=== PATIENT | male | born 1975 | race African-American/Black ===

== ENCOUNTER 2017-03-13 18:10 | Inpatient (IN) | payer MEDICAID ==
[~2017-03-13] VITALS: Ht 177.8 cm; Wt 140.6 kg
[2017-03-13 19:01] LABS: Basophils # (auto) 0.1 uL; Basophils % (auto) 0.4 % (0.0-2.0); CONDITION Y; Eosinophils # (auto) 0.1 uL; Eosinophils % (auto) 0.3 % (0.0-7.0); Hematocrit 31.7 % (41.0-53.0); Hemoglobin 10.6 g/dL (13.5-17.5); Lymphocytes # (auto) 0.9 uL; Lymphocytes % (auto) 5.6 % (10.0-50.0); Mean Corpuscular Hemoglobin 30.8 pg (28.0-32.0); Mean Corpuscular Hgb Conc. 33.4 g/dL (32.0-36.0); Mean Corpuscular Volume 92.2 fL (80.0-100.0); Mean Platelet Volume 7.4 fL (7.4-10.4); Monocytes # (auto) 0.4 uL; Monocytes % (auto) 2.8 % (0.0-12.0); Neutrophils # (auto) 14.2 uL; Neutrophils % (auto) 90.9 % (37.0-80.0); Platelet Count (auto) 444 10^3/uL (140-450); Red Cell Distribution Width 13.3 % (11.6-16.0); White Blood Cell 15.6 10^3/uL (4.4-10.8)
[2017-03-13 19:26] LABS: Albumin 2.8 g/dL (3.4-5.0); Bilirubin, Total 0.3 mg/dL (0.2-1.0); Calcium 9.1 mg/dL (8.5-10.1); Potassium 4.7 mmol/L (3.5-5.1); Total Protein 9.1 g/dL (6.4-8.2)
[2017-03-14] MEDS ORDERED: ONDANSETRON HCL 4 MG/2 ML VIAL ONE (01:11)
[2017-03-14] MEDS ORDERED: SODIUM CHLORIDE 0.9% 1,000 ML IV ONE (01:15)
[2017-03-14] MEDS ORDERED: HYDROmorphone HCL 2 MG/ML VL IV ONE ×2 (01:15→05:30)
[2017-03-14] MEDS ORDERED: ONDANSETRON HCL 4 MG/2 ML VIAL IV ONE ×2 (01:15→04:30)
[2017-03-14 02:38] LABS: Urine Bilirubin Negative (Negative); Urine Blood 2+ /uL (Negative); Urine Color Yellow (Yellow); Urine Glucose Normal (Normal); Urine Ketone 1+ (Negative); Urine Nitrite POSITIVE (Negative); Urine RBC 129 /hpf (0 - 3); Urine Squamous Epithelial Cell FEW /hpf (<5); Urine Urobilinogen Normal (Negative); Urine WBC Clumps PRESENT /hpf (None Seen)
[2017-03-14] MEDS ORDERED: cefTRIAXone 1GM/50ML D5W 50 ML IV ONE (03:45)
[2017-03-14] MEDS ORDERED: PROMETHAZINE HCL 25 MG/ML 1ML IV ONE (05:00)
[2017-03-14] MEDS: SODIUM CHLORIDE 0.9% 1,000 ML IV SCH ×2 (06:07→14:07)
[2017-03-14] MEDS ORDERED: ONDANSETRON HCL 4 MG/2 ML VIAL IV PRN (06:15)
[2017-03-14] MEDS ORDERED: DEXTROSE (50%) 50ML SYRG IV PRN (06:15)
[2017-03-14] MEDS: FERROUS SULFATE 325 MG TAB PO SCH ×3 (07:54→17:39)
[2017-03-14] MEDS: cefTRIAXone 1GM/50ML D5W 50 ML IV SCH (07:55)
[2017-03-14 09:00] VITALS: BP 156/94
[2017-03-14] MEDS: ONDANSETRON HCL 4 MG/2 ML VIAL IV PRN ×4 (09:07→21:06)
[2017-03-14] MEDS: HYDROmorphone HCL 2 MG/ML VL IV PRN ×4 (09:08→21:06)
[2017-03-14] MEDS: PANTOPRAZOLE 40 MG/10 ML VIAL IV SCH (10:52)
[2017-03-14] MEDS: hydrALAZINE HCL 25 MG TAB PO SCH ×2 (10:53→22:22)
[2017-03-14] MEDS: GABAPENTIN 300 MG CAP PO SCH (10:54)
[2017-03-14] MEDS: FAMOTIDINE 20 MG TAB PO SCH ×2 (10:54→22:24)
[2017-03-14] MEDS: LISINOPRIL 10 MG TAB PO SCH (10:55)
[2017-03-14] MEDS: amLODIPine BESYLATE 5 MG TAB PO SCH ×2 (10:56→22:24)
[2017-03-14] MEDS: METOPROLOL TARTRATE 50 MG TAB PO SCH ×2 (10:57→22:23)
[2017-03-14] MEDS: InsuLIN REG 1unit/0.01ml Soln (100units/ml) SC SCH ×3 (12:00→22:30)
[2017-03-14] MEDS: ACCU-CHEK COMFORT CURVE STRIP VI SCH ×3 (12:00→22:29)
[2017-03-14 12:47] VITALS: BP 158/101
[2017-03-14 12:49] LABS: Basophils # (auto) 0 uL; CONDITION Y; Eosinophils # (auto) 0 uL; Hematocrit 28.5 % (41.0-53.0); Hemoglobin 9.5 g/dL (13.5-17.5); Lymphocytes # (auto) 0.9 uL; Lymphocytes % (auto) 6.2 % (10.0-50.0); Mean Corpuscular Hemoglobin 30.8 pg (28.0-32.0); Mean Corpuscular Hgb Conc. 33.3 g/dL (32.0-36.0); Mean Corpuscular Volume 92.5 fL (80.0-100.0); Mean Platelet Volume 7.7 fL (7.4-10.4); Monocytes # (auto) 0.7 uL; Monocytes % (auto) 4.9 % (0.0-12.0); Neutrophils # (auto) 13.1 uL; Neutrophils % (auto) 88.9 % (37.0-80.0); Platelet Count (auto) 406 10^3/uL (140-450); Red Cell Distribution Width 13.6 % (11.6-16.0); White Blood Cell 14.8 10^3/uL (4.4-10.8)
[2017-03-14 13:10] LABS: BUN/Creatinine Ratio 20.8; Calcium 8.8 mg/dL (8.5-10.1); Magnesium 2.3 mg/dL (1.6-2.6); Potassium 4.5 mmol/L (3.5-5.1)
[2017-03-14] MEDS ORDERED: AMLO5TAB2 PO (13:44)
[2017-03-14] MEDS ORDERED: METO-159 PO (13:44)
[2017-03-14] MEDS ORDERED: FERR325T PO (13:44)
[2017-03-14] MEDS ORDERED: AMIT25TA9 PO (13:44)
[2017-03-14] MEDS ORDERED: HYDR-2652 PO (13:44)
[2017-03-14] MEDS ORDERED: LISI10TA6 PO (13:44)
[2017-03-14] MEDS ORDERED: GABA-497 PO (13:44)
[2017-03-14] MEDS ORDERED: INSLANTI SC (14:32)
[2017-03-14 17:00] VITALS: BP 157/114
[2017-03-14 21:00] VITALS: BP 155/96
[2017-03-14] MEDS: AMITRIPTYLINE HCL 25 MG TAB PO SCH (22:23)
[2017-03-15] MEDS: HYDROmorphone HCL 2 MG/ML VL IV PRN ×6 (01:57→22:40)
[2017-03-15] MEDS: SODIUM CHLORIDE 0.9% 1,000 ML IV SCH ×4 (01:58→22:07)
[2017-03-15] MEDS: ONDANSETRON HCL 4 MG/2 ML VIAL IV PRN ×6 (01:58→22:41)
[2017-03-15 04:30] VITALS: BP 136/75
[2017-03-15] MEDS: ACCU-CHEK COMFORT CURVE STRIP VI SCH ×4 (05:46→23:55)
[2017-03-15] MEDS: InsuLIN REG 1unit/0.01ml Soln (100units/ml) SC SCH ×4 (05:47→23:55)
[2017-03-15 06:04] LABS: Basophils # (auto) 0 uL; Basophils % (auto) 0.3 % (0.0-2.0); CONDITION Y; Eosinophils # (auto) 0 uL; Eosinophils % (auto) 0.3 % (0.0-7.0); Hematocrit 30.3 % (41.0-53.0); Hemoglobin 9.8 g/dL (13.5-17.5); Lymphocytes # (auto) 1.1 uL; Lymphocytes % (auto) 8.1 % (10.0-50.0); Mean Corpuscular Hemoglobin 30.4 pg (28.0-32.0); Mean Corpuscular Hgb Conc. 32.4 g/dL (32.0-36.0); Mean Corpuscular Volume 93.7 fL (80.0-100.0); Mean Platelet Volume 7.9 fL (7.4-10.4); Monocytes # (auto) 0.5 uL; Monocytes % (auto) 3.8 % (0.0-12.0); Neutrophils # (auto) 11.5 uL; Neutrophils % (auto) 87.5 % (37.0-80.0); Platelet Count (auto) 434 10^3/uL (140-450); Red Cell Distribution Width 13.5 % (11.6-16.0); White Blood Cell 13.1 10^3/uL (4.4-10.8)
[2017-03-15 06:25] LABS: BUN/Creatinine Ratio 18.4; Calcium 8.7 mg/dL (8.5-10.1); Magnesium 2.2 mg/dL (1.6-2.6); Potassium 4.8 mmol/L (3.5-5.1)
[2017-03-15 08:00] VITALS: BP 140/81
[2017-03-15] MEDS: FERROUS SULFATE 325 MG TAB PO SCH ×4 (08:00→18:00)
[2017-03-15] MEDS: cefTRIAXone 1GM/50ML D5W 50 ML IV SCH (08:15)
[2017-03-15 08:47] VITALS: BP 150/76
[2017-03-15] MEDS: GABAPENTIN 300 MG CAP PO SCH (11:11)
[2017-03-15] MEDS: FAMOTIDINE 20 MG TAB PO SCH ×2 (11:11→21:30)
[2017-03-15] MEDS: PANTOPRAZOLE 40 MG/10 ML VIAL IV SCH (11:11)
[2017-03-15] MEDS: METOPROLOL TARTRATE 50 MG TAB PO SCH ×2 (11:12→21:28)
[2017-03-15] MEDS: hydrALAZINE HCL 25 MG TAB PO SCH ×3 (11:12→21:29)
[2017-03-15] MEDS: amLODIPine BESYLATE 5 MG TAB PO SCH ×2 (11:13→21:27)
[2017-03-15] MEDS: LISINOPRIL 10 MG TAB PO SCH (11:13)
[2017-03-15 12:49] VITALS: BP 148/88
[2017-03-15] MEDS ORDERED: POLYETHYLENE GLYCOL 17 GM PWDR PO PRN (13:30)
[2017-03-15 14:18] LABS: INR 0.99 (0.9-1.15); Partial Thromboplastin Time 28.5 sec (22.64-33.71); Prothrombin Time 10.8 sec (9.37-12.3)
[2017-03-15 16:52] VITALS: BP 158/97
[2017-03-15 18:44] LABS: BUN/Creatinine Ratio 18.5; Calcium 8.7 mg/dL (8.5-10.1); Potassium 4.5 mmol/L (3.5-5.1)
[2017-03-15] MEDS: AMITRIPTYLINE HCL 25 MG TAB PO SCH (21:29)
[2017-03-15 21:30] VITALS: BP 149/85
[2017-03-16] MEDS: ONDANSETRON HCL 4 MG/2 ML VIAL IV PRN ×4 (02:50→17:58)
[2017-03-16] MEDS: HYDROmorphone HCL 2 MG/ML VL IV PRN ×3 (02:50→12:13)
[2017-03-16 05:00] VITALS: BP 145/98
[2017-03-16] MEDS: hydrALAZINE HCL 25 MG TAB PO SCH (06:17)
[2017-03-16] MEDS: ACCU-CHEK COMFORT CURVE STRIP VI SCH ×2 (06:18→12:13)
[2017-03-16] MEDS: InsuLIN REG 1unit/0.01ml Soln (100units/ml) SC SCH (06:18)
[2017-03-16] MEDS: SODIUM CHLORIDE 0.9% 1,000 ML IV SCH ×2 (06:19→12:21)
[2017-03-16 06:50] LABS: Basophils # (auto) 0 uL; Basophils % (auto) 0.4 % (0.0-2.0); CONDITION Y; Eosinophils # (auto) 0.1 uL; Eosinophils % (auto) 0.7 % (0.0-7.0); Hematocrit 29.4 % (41.0-53.0); Hemoglobin 9.7 g/dL (13.5-17.5); Lymphocytes # (auto) 1.2 uL; Lymphocytes % (auto) 12.3 % (10.0-50.0); Mean Corpuscular Hemoglobin 30.5 pg (28.0-32.0); Mean Corpuscular Hgb Conc. 32.9 g/dL (32.0-36.0); Mean Corpuscular Volume 92.9 fL (80.0-100.0); Mean Platelet Volume 7.9 fL (7.4-10.4); Monocytes # (auto) 0.6 uL; Monocytes % (auto) 6.5 % (0.0-12.0); Neutrophils # (auto) 7.8 uL; Neutrophils % (auto) 80.1 % (37.0-80.0); Platelet Count (auto) 435 10^3/uL (140-450); Red Cell Distribution Width 13.4 % (11.6-16.0); White Blood Cell 9.8 10^3/uL (4.4-10.8)
[2017-03-16 07:03] LABS: BUN/Creatinine Ratio 16.5; Calcium 8.6 mg/dL (8.5-10.1); Potassium 4.4 mmol/L (3.5-5.1)
[2017-03-16 08:00] VITALS: BP 145/98
[2017-03-16] MEDS: FERROUS SULFATE 325 MG TAB PO SCH (08:00)
[2017-03-16 09:00] VITALS: BP 160/102
[2017-03-16] MEDS: GABAPENTIN 300 MG CAP PO SCH (10:00)
[2017-03-16] MEDS: PANTOPRAZOLE 40 MG/10 ML VIAL IV SCH (10:06)
[2017-03-16] MEDS: cefTRIAXone 1GM/50ML D5W 50 ML IV SCH (10:06)
[2017-03-16] MEDS: FAMOTIDINE 20 MG TAB PO SCH (10:07)
[2017-03-16] MEDS: amLODIPine BESYLATE 5 MG TAB PO SCH (10:07)
[2017-03-16] MEDS: METOPROLOL TARTRATE 50 MG TAB PO SCH (10:07)
[2017-03-16 13:00] VITALS: BP 161/107
[2017-03-16] MEDS ORDERED: NALOXONE HCL 0.4 MG/ML VIAL ONE (13:38)
[2017-03-16] MEDS ORDERED: FLUMAZENIL 0.1 MG/ML INJ 10ML MDV IV ONE (13:38)
[2017-03-16] MEDS ORDERED: LIDOCAINE VISCOUS 2% 15ML UD ONE (13:39)
[2017-03-16] MEDS ORDERED: diphenhdrAMINE HCL 50 MG/1 ML VL ONE (13:39)
[2017-03-16] MEDS ORDERED: SODIUM CHLORIDE LOCK 10 ML ONE (13:39)
[2017-03-16] MEDS: MIDAZOLAM HCL 5 MG/ML-1ML VIAL ONE ×2 (13:56→13:59)
[2017-03-16] MEDS: fentaNYL CITRATE 100 MCG/2 ML VL ONE ×2 (13:56→13:59)
[2017-03-16] MEDS ORDERED: HYDR-4663 PO ×2 (14:21→14:26)
[2017-03-16] MEDS ORDERED: HYDR-531 PO (14:24)
[2017-03-16] MEDS ORDERED: ONDA4TAB8 PO (14:25)
[2017-03-16] MEDS ORDERED: HYDR-2651 PO (14:25)
[2017-03-16] MEDS ORDERED: PANT40T PO (14:25)
[2017-03-16] MEDS ORDERED: LEVO500T21 PO (14:25)
[2017-03-16] MEDS ORDERED: MET50T PO (14:25)
[2017-03-16] MEDS ORDERED: HYDROcodone-ACET 5/325MG TAB PO PRN (14:30)
[2017-03-16] MEDS ORDERED: HYDROmorphone HCL 2 MG/ML VL IV PRN (14:30)
[2017-03-16 17:00] VITALS: BP 148/102
[2017-03-16 18:19] VITALS: BP 148/102
[2017-03-16] MEDS ORDERED: METOPROLOL TARTRATE 50 MG TAB PO SCH (22:00)
== END 2017-03-16 18:55 | disposition home health service (06) | DRG 720 ==
LOC: ER 18:12 → OVERFLOW 18:13 → WEST WING 03-14 08:52
PROVIDERS: ADMIT Family Medicine; ATTEND Internal Medicine
PROC: 0DB68ZX Excision of Stomach, Via Natural or Artificial Opening Endoscopic, Diagnostic (ICD-10-PCS; 2017-03-16)
PROC: 0DB38ZX Excision of Lower Esophagus, Via Natural or Artificial Opening Endoscopic, Diagnostic (ICD-10-PCS; principal; 2017-03-16 13:50)
DX: A41.9 Sepsis, unspecified organism (principal); N17.9 Acute kidney failure, unspecified; E11.21 Type 2 diabetes mellitus with diabetic nephropathy; I10 Essential (primary) hypertension; D63.8 Anemia in other chronic diseases classified elsewhere; E86.0 Dehydration; E11.22 Type 2 diabetes mellitus with diabetic chronic kidney disease; F32.9 Major depressive disorder, single episode, unspecified; I12.9 Hypertensive chronic kidney disease with stage 1 through stage 4 chronic kidney disease, or unspecified chronic kidney disease; K20.9 Esophagitis, unspecified; N18.2 Chronic kidney disease, stage 2 (mild); N30.90 Cystitis, unspecified without hematuria; Z79.4 Long term (current) use of insulin; Z89.511 Acquired absence of right leg below knee; Z89.512 Acquired absence of left leg below knee
CPT/HCPCS: 36415; 43239; 71010; 74176; 76775; 80048; 80053; 81001; 82150; 82962; 83036; 83690; 83735; 84484; 85025; 85610; 85730; 87040; 87086; 87088; 87186; 93005; 96361; 96365; 96375; 96376; C9113; J0696; J1815; J2250; J2405

== ENCOUNTER 2017-03-31 01:29 | Inpatient (IN) | payer MEDICAID ==
[~2017-03-31] VITALS: Ht 121.9 cm; Wt 149.0 kg
[~2017-03-31 01:29] MED LIST: AMIT25TA9 PO; AMLO5TAB2 PO; FERR325T PO; GABA-497 PO; HYDR-2651 PO; HYDR-4663 PO; INSLANTI SC; LEVO500T21 PO; MET50T PO; ONDA4TAB8 PO; PANT40T PO
[2017-03-31] MEDS ORDERED: SODIUM CHLORIDE 0.9% 1,000 ML IV ONE (02:46)
[2017-03-31 02:53] LABS: Basophils # (auto) 0.2 uL; Basophils % (auto) 2.1 % (0.0-2.0); CONDITION Y; Eosinophils # (auto) 0.2 uL; Eosinophils % (auto) 1.4 % (0.0-7.0); Hematocrit 28.7 % (41.0-53.0); Hemoglobin 9.5 g/dL (13.5-17.5); Lymphocytes # (auto) 1.4 uL; Lymphocytes % (auto) 13.1 % (10.0-50.0); Mean Corpuscular Hemoglobin 30.5 pg (28.0-32.0); Mean Corpuscular Volume 92.4 fL (80.0-100.0); Mean Platelet Volume 8.2 fL (6.9-10.8); Monocytes # (auto) 0.8 uL; Monocytes % (auto) 7.7 % (0.0-12.0); Neutrophils # (auto) 8.1 uL; Neutrophils % (auto) 75.7 % (37.0-80.0); Platelet Count (auto) 348 10^3/uL (140-450); Red Cell Distribution Width 13.7 % (11.8-14.3); White Blood Cell 10.7 10^3/uL (4.4-10.8)
[2017-03-31 03:12] LABS: Albumin 2.7 g/dL (3.4-5.0); Calcium 8.3 mg/dL (8.5-10.1); Magnesium 2.9 mg/dL (1.6-2.6)
[2017-03-31 03:19] LABS: BUN/Creatinine Ratio 7.4; Bilirubin, Total 0.1 mg/dL (0.2-1.0); Total Protein 7.6 g/dL (6.4-8.2)
[2017-03-31 03:24] LABS: Potassium 6.6 mmol/L (3.5-5.1)
[2017-03-31] MEDS ORDERED: CALCIUM CHLOR(10%) 100MG/ML 10ML SYRINGE IV ONE (03:42)
[2017-03-31] MEDS ORDERED: DEXTROSE (50%) 50ML SYRG IV ONE ×2 (03:45→11:15)
[2017-03-31] MEDS ORDERED: CALCIUM CHL 100MG/ML 1,000 MG in D5W 5% 100 ML IV ONE (03:45)
[2017-03-31] MEDS ORDERED: InsuLIN REG 1unit/0.01ml Soln (100units/ml) IV ONE ×2 (03:45→11:15)
[2017-03-31] MEDS ORDERED: SODIUM BICARBONATE 8.4% INJ 50ML SYRINGE IV ONE (03:45)
[2017-03-31] MEDS ORDERED: ONDANSETRON HCL 4 MG/2 ML VIAL IV ONE (08:15)
[2017-03-31] MEDS ORDERED: MORPHINE SULF INJ 2 MG/ML SYRINGE 1ML IV ONE (08:15)
[2017-03-31] MEDS ORDERED: MORPHINE SULF INJ 2 MG/ML SYRINGE 1ML IV PRN (10:00)
[2017-03-31] MEDS ORDERED: ACETAMINOPHEN 325 MG TAB PO PRN (10:00)
[2017-03-31] MEDS ORDERED: TEMAZEPAM 15 MG CAP PO PRN (10:00)
[2017-03-31] MEDS: GABAPENTIN 300 MG CAP PO SCH (10:00)
[2017-03-31] MEDS ORDERED: FAMOTIDINE 20 MG TAB PO SCH (10:00)
[2017-03-31] MEDS ORDERED: DOCUSATE SOD 100 MG CAP PO PRN (10:00)
[2017-03-31] MEDS ORDERED: NITROGLYCERIN 0.4 MG SL TAB SL PRN (10:00)
[2017-03-31] MEDS: MULTIPLE VITAMIN TAB PO SCH (10:00)
[2017-03-31] MEDS ORDERED: DEXTROSE (50%) 50ML SYRG IV PRN (10:00)
[2017-03-31] MEDS ORDERED: HYDROcodone-ACET 5/325MG TAB PO PRN (10:00)
[2017-03-31] MEDS: FERROUS SULFATE 325 MG TAB PO SCH (10:00)
[2017-03-31] MEDS: FAMOTIDINE 20 MG TAB PO SCH (10:15)
[2017-03-31 10:50] LABS: INR 0.92 (0.9-1.15)
[2017-03-31 11:00] LABS: BUN/Creatinine Ratio 7.5; Calcium 8.3 mg/dL (8.5-10.1)
[2017-03-31 11:09] LABS: Potassium 6.5 mmol/L (3.5-5.1)
[2017-03-31] MEDS ORDERED: SODIUM BICARBONATE 8.4 % INJ 50ML VIAL IV ONE (11:15)
[2017-03-31] MEDS ORDERED: CALCIUM GLUC 4.65meq/50ml D5AE 50 ML IV ONE (11:15)
[2017-03-31] MEDS: InsuLIN REG 1unit/0.01ml Soln (100units/ml) SC SCH ×3 (11:30→22:07)
[2017-03-31] MEDS: ACCU-CHEK COMFORT CURVE STRIP VI SCH ×3 (11:36→22:07)
[2017-03-31] MEDS ORDERED: BUMETANIDE (0.25 MG/ML) INJ 10ML IV ONE (11:45)
[2017-03-31] MEDS: Boost Glucose Control 8 Ounces PO SCH ×2 (12:00→17:58)
[2017-03-31 12:39] LABS: Urine Bilirubin Negative (Negative); Urine Blood 1+ /uL (Negative); Urine Color Yellow (Yellow); Urine Glucose Normal (Normal); Urine Ketone TRACE (Negative); Urine Nitrite Negative (Negative); Urine RBC 3 /hpf (0 - 3); Urine Squamous Epithelial Cell FEW /hpf (<5); Urine Urobilinogen Normal (Negative)
[2017-03-31 12:47] LABS: B-Type Natriuretic Peptide 224.81 pg/mL (0-100)
[2017-03-31 13:27] LABS: Allen Test Yes; Base Excess -19.4 mmol/L (-2.0-2.0); Blood 02Sat 95.2 % (96-100); Blood COHb 0.1 % (0.5-1.5); Blood MetHb 0.4 % (0.0-1.5); HCO3 8.9 mmol/L (22-26.0); HHb 4.8 % (0.0-5.0); MODE ROOM AIR; O2Hb 94.7 % (94.0-97.0); PCO2 29.9 mmHg (35.0-45.0); PCO2(T) 29.9 mmHg (35.0-45.0); PO2 93.1 mmHg (80.0-100.0); PO2(T) 93.1 mmHg (80.0-100.0); Room 1010-ERT; Sample Type Arterial; pH 7.092 (7.350-7.450)
[2017-03-31 13:30] VITALS: BP 107/52
[2017-03-31] MEDS: SODIUM POLYSTYRENE SULF 15GM/60ML SUSP PO SCH ×3 (13:31→18:08)
[2017-03-31] MEDS: SODIUM BICARBONATE 50ML VIAL 150 ML in D5W 5% 1,000 ML IV SCH ×2 (13:31→22:15)
[2017-03-31] MEDS: SODIUM CHLOR 0.9% PF (SALINE LOCK) 10ML VIAL IV SCH ×2 (14:00→22:08)
[2017-03-31 16:00] VITALS: BP 109/52
[2017-03-31] MEDS: MORPHINE SULF INJ 2 MG/ML SYRINGE 1ML IV PRN ×2 (16:06→20:24)
[2017-03-31] MEDS ORDERED: ALBUMIN 25% 100 ML IV ONE (18:00)
[2017-03-31 18:19] LABS: BUN/Creatinine Ratio 7.4; Calcium 8.2 mg/dL (8.5-10.1); Potassium 5.4 mmol/L (3.5-5.1)
[2017-03-31 20:00] VITALS: BP 126/79
[2017-03-31] MEDS: AMITRIPTYLINE HCL 25 MG TAB PO SCH (22:07)
[2017-03-31] MEDS: INSULIN DETEMIR(LEVEMIR) 1unit/0.01ml Soln (100units/ml) SC SCH (22:15)
[2017-04-01] VITALS: BP 140/88
[2017-04-01] MEDS: MORPHINE SULF INJ 2 MG/ML SYRINGE 1ML IV PRN ×3 (00:18→22:31)
[2017-04-01] MEDS: SODIUM BICARBONATE 50ML VIAL 150 ML in D5W 5% 1,000 ML IV SCH ×3 (03:50→19:10)
[2017-04-01 04:00] VITALS: BP 136/65
[2017-04-01 05:50] LABS: Basophils # (auto) 0.2 uL; Basophils % (auto) 2.3 % (0.0-2.0); Eosinophils # (auto) 0.2 uL; Eosinophils % (auto) 3.2 % (0.0-7.0); Hematocrit 24.2 % (41.0-53.0); Hemoglobin 8.1 g/dL (13.5-17.5); Lymphocytes # (auto) 1.1 uL; Lymphocytes % (auto) 16.9 % (10.0-50.0); Mean Corpuscular Hemoglobin 31.3 pg (28.0-32.0); Mean Corpuscular Hgb Conc. 33.5 g/dL (32.0-36.0); Mean Corpuscular Volume 93.5 fL (80.0-100.0); Mean Platelet Volume 8.1 fL (6.9-10.8); Monocytes # (auto) 0.7 uL; Neutrophils # (auto) 4.6 uL; Neutrophils % (auto) 67.6 % (37.0-80.0); Platelet Count (auto) 267 10^3/uL (140-450); Red Cell Distribution Width 13.6 % (11.8-14.3); White Blood Cell 6.7 10^3/uL (4.4-10.8)
[2017-04-01 06:46] LABS: Albumin 2.4 g/dL (3.4-5.0); Bilirubin, Total 0.2 mg/dL (0.2-1.0); Calcium 7.8 mg/dL (8.5-10.1); Potassium 4.5 mmol/L (3.5-5.1); Total Protein 6.8 g/dL (6.4-8.2)
[2017-04-01] MEDS: SODIUM CHLOR 0.9% PF (SALINE LOCK) 10ML VIAL IV SCH ×3 (06:52→22:02)
[2017-04-01] MEDS: ACCU-CHEK COMFORT CURVE STRIP VI SCH ×4 (06:52→22:03)
[2017-04-01] MEDS: InsuLIN REG 1unit/0.01ml Soln (100units/ml) SC SCH ×4 (06:52→22:00)
[2017-04-01 08:00] VITALS: BP 102/58
[2017-04-01] MEDS: Boost Glucose Control 8 Ounces PO SCH ×3 (08:10→18:09)
[2017-04-01] MEDS: FERROUS SULFATE 325 MG TAB PO SCH (09:34)
[2017-04-01] MEDS: FAMOTIDINE 20 MG TAB PO SCH (09:34)
[2017-04-01] MEDS: MULTIPLE VITAMIN TAB PO SCH (09:34)
[2017-04-01] MEDS: GABAPENTIN 300 MG CAP PO SCH (09:34)
[2017-04-01] MEDS: DOPamine 1600MCG/ML 250 ML IV SCH (11:42)
[2017-04-01 12:00] VITALS: BP 138/80
[2017-04-01] MEDS: CALCIUM ACETATE 667 MG CAP PO SCH ×2 (12:18→18:09)
[2017-04-01 16:00] VITALS: BP 120/69
[2017-04-01 20:00] VITALS: BP 112/43
[2017-04-01] MEDS: ONDANSETRON HCL 4 MG/2 ML VIAL IV PRN (21:56)
[2017-04-01] MEDS: INSULIN DETEMIR(LEVEMIR) 1unit/0.01ml Soln (100units/ml) SC SCH (22:26)
[2017-04-01] MEDS: AMITRIPTYLINE HCL 25 MG TAB PO SCH (22:32)
[2017-04-02] VITALS: BP 135/78
[2017-04-02] MEDS: SODIUM BICARBONATE 50ML VIAL 150 ML in D5W 5% 1,000 ML IV SCH ×2 (03:14→09:49)
[2017-04-02 04:00] VITALS: BP 124/71
[2017-04-02 05:39] LABS: Albumin 2.3 g/dL (3.4-5.0); BUN/Creatinine Ratio 11.9; Bilirubin, Total 0.3 mg/dL (0.2-1.0); Calcium 7.6 mg/dL (8.5-10.1); Potassium 4.1 mmol/L (3.5-5.1); Total Protein 6.7 g/dL (6.4-8.2)
[2017-04-02] MEDS: SODIUM CHLOR 0.9% PF (SALINE LOCK) 10ML VIAL IV SCH ×3 (06:06→22:08)
[2017-04-02] MEDS: ACCU-CHEK COMFORT CURVE STRIP VI SCH ×4 (06:12→22:08)
[2017-04-02] MEDS: InsuLIN REG 1unit/0.01ml Soln (100units/ml) SC SCH ×4 (06:13→22:09)
[2017-04-02 07:58] LABS: Basophils # (auto) 0.1 uL; Eosinophils # (auto) 0.1 uL; Eosinophils % (auto) 1.8 % (0.0-7.0); Hematocrit 25.6 % (41.0-53.0); Hemoglobin 8.5 g/dL (13.5-17.5); Lymphocytes # (auto) 1.1 uL; Lymphocytes % (auto) 14.3 % (10.0-50.0); Mean Corpuscular Hemoglobin 30.8 pg (28.0-32.0); Mean Corpuscular Hgb Conc. 33.2 g/dL (32.0-36.0); Mean Corpuscular Volume 92.9 fL (80.0-100.0); Mean Platelet Volume 7.9 fL (6.9-10.8); Monocytes # (auto) 0.7 uL; Monocytes % (auto) 9.1 % (0.0-12.0); Neutrophils # (auto) 5.4 uL; Neutrophils % (auto) 73.8 % (37.0-80.0); Platelet Count (auto) 295 10^3/uL (140-450); Red Cell Distribution Width 13.5 % (11.8-14.3); White Blood Cell 7.4 10^3/uL (4.4-10.8)
[2017-04-02] MEDS: CALCIUM ACETATE 667 MG CAP PO SCH ×4 (08:00→22:08)
[2017-04-02] MEDS: Boost Glucose Control 8 Ounces PO SCH ×3 (08:00→18:23)
[2017-04-02] MEDS: ONDANSETRON HCL 4 MG/2 ML VIAL IV PRN ×3 (08:09→22:15)
[2017-04-02] MEDS: MORPHINE SULF INJ 2 MG/ML SYRINGE 1ML IV PRN ×3 (09:29→22:15)
[2017-04-02] MEDS: GABAPENTIN 300 MG CAP PO SCH (09:33)
[2017-04-02] MEDS: FERROUS SULFATE 325 MG TAB PO SCH (09:33)
[2017-04-02] MEDS: MULTIPLE VITAMIN TAB PO SCH (09:33)
[2017-04-02] MEDS: FAMOTIDINE 20 MG TAB PO SCH (09:33)
[2017-04-02] MEDS: DOPamine 1600MCG/ML 250 ML IV SCH (09:45)
[2017-04-02] MEDS ORDERED: FAMOTIDINE (10MG/ML) 2ML VL IV ONE (11:15)
[2017-04-02] MEDS: METOCLOPRAMIDE HCL 5MG/ml INJ 2ml VIAL IV SCH ×2 (11:58→18:23)
[2017-04-02 12:11] VITALS: BP 144/74
[2017-04-02] MEDS: SODIUM BICARBONATE 50ML VIAL 75 ML in D5W 5% 1,000 ML IV SCH ×2 (12:44→22:08)
[2017-04-02] MEDS ORDERED: PANTOPRAZOLE 40 MG/10 ML VIAL IV ONE (13:45)
[2017-04-02 15:50] VITALS: BP 138/65
[2017-04-02 17:39] VITALS: BP 168/102
[2017-04-02] MEDS: NYSTATIN TOPICAL POWDER 15GM TOP SCH (22:00)
[2017-04-02] MEDS: PANTOPRAZOLE 40 MG/10 ML VIAL IV SCH (22:08)
[2017-04-02] MEDS: INSULIN DETEMIR(LEVEMIR) 1unit/0.01ml Soln (100units/ml) SC SCH (22:10)
[2017-04-02] MEDS: AMITRIPTYLINE HCL 25 MG TAB PO SCH (22:10)
[2017-04-02 22:35] VITALS: BP 170/92
[2017-04-03] VITALS (7 sets, daily range): BP systolic 143–173; BP diastolic 73–106
[2017-04-03] MEDS: METOCLOPRAMIDE HCL 5MG/ml INJ 2ml VIAL IV SCH ×2 (00:31→06:17)
[2017-04-03] MEDS: ONDANSETRON HCL 4 MG/2 ML VIAL IV PRN ×2 (02:21→08:26)
[2017-04-03] MEDS: MORPHINE SULF INJ 2 MG/ML SYRINGE 1ML IV PRN ×4 (02:21→18:06)
[2017-04-03] MEDS: hydrALAZINE HCL 20 MG/ML VL IV PRN ×3 (05:12→17:58)
[2017-04-03] MEDS: SODIUM BICARBONATE 50ML VIAL 75 ML in D5W 5% 1,000 ML IV SCH ×3 (05:35→22:43)
[2017-04-03] MEDS: SODIUM CHLOR 0.9% PF (SALINE LOCK) 10ML VIAL IV SCH ×3 (05:35→21:52)
[2017-04-03] MEDS: ACCU-CHEK COMFORT CURVE STRIP VI SCH ×4 (06:17→22:20)
[2017-04-03] MEDS: InsuLIN REG 1unit/0.01ml Soln (100units/ml) SC SCH ×4 (06:17→22:20)
[2017-04-03 07:34] LABS: Albumin 2.2 g/dL (3.4-5.0); BUN/Creatinine Ratio 16.5; Bilirubin, Total 0.4 mg/dL (0.2-1.0); Calcium 7.6 mg/dL (8.5-10.1); Potassium 4.5 mmol/L (3.5-5.1); Total Protein 6.9 g/dL (6.4-8.2)
[2017-04-03] MEDS: CALCIUM ACETATE 667 MG CAP PO SCH ×3 (08:21→17:57)
[2017-04-03] MEDS: Boost Glucose Control 8 Ounces PO SCH ×3 (08:21→18:07)
[2017-04-03] MEDS ORDERED: FAMOTIDINE (10MG/ML) 2ML VL IV SCH (10:00)
[2017-04-03] MEDS: PANTOPRAZOLE 40 MG/10 ML VIAL IV SCH ×2 (10:29→21:47)
[2017-04-03] MEDS: MULTIPLE VITAMIN TAB PO SCH (10:52)
[2017-04-03] MEDS: FERROUS SULFATE 325 MG TAB PO SCH (10:53)
[2017-04-03] MEDS: NYSTATIN TOPICAL POWDER 15GM TOP SCH ×2 (10:54→22:21)
[2017-04-03] MEDS ORDERED: GABAPENTIN 300 MG CAP PO ONE (11:30)
[2017-04-03] MEDS: METOCLOPRAMIDE HCL 10 MG/10ml ORAL soln PO SCH ×3 (12:05→21:49)
[2017-04-03] MEDS: amLODIPine BESYLATE 5 MG TAB PO SCH (12:40)
[2017-04-03] MEDS ORDERED: GABAPENTIN 300 MG CAP PO SCH (14:00)
[2017-04-03] MEDS: AMITRIPTYLINE HCL 25 MG TAB PO SCH (21:50)
[2017-04-03] MEDS: GABAPENTIN 300 MG CAP PO SCH (21:51)
[2017-04-03] MEDS ORDERED: INSULIN DETEMIR(LEVEMIR) 1unit/0.01ml Soln (100units/ml) SC SCH (22:00)
[2017-04-04] VITALS (7 sets, daily range): BP systolic 132–164; BP diastolic 74–95
[2017-04-04] MEDS: MORPHINE SULF INJ 2 MG/ML SYRINGE 1ML IV PRN (01:59)
[2017-04-04] MEDS: ACCU-CHEK COMFORT CURVE STRIP VI SCH ×2 (05:29→11:53)
[2017-04-04] MEDS: METOCLOPRAMIDE HCL 10 MG/10ml ORAL soln PO SCH ×2 (05:29→12:05)
[2017-04-04] MEDS: SODIUM CHLOR 0.9% PF (SALINE LOCK) 10ML VIAL IV SCH ×2 (05:30→16:53)
[2017-04-04] MEDS: InsuLIN REG 1unit/0.01ml Soln (100units/ml) SC SCH ×2 (05:30→12:06)
[2017-04-04 05:36] LABS: Basophils # (auto) 0.1 uL; Eosinophils # (auto) 0.2 uL; Eosinophils % (auto) 2.8 % (0.0-7.0); Hematocrit 24.8 % (41.0-53.0); Hemoglobin 8.4 g/dL (13.5-17.5); Lymphocytes # (auto) 1.2 uL; Lymphocytes % (auto) 15.3 % (10.0-50.0); Mean Corpuscular Hemoglobin 31.1 pg (28.0-32.0); Mean Corpuscular Hgb Conc. 33.8 g/dL (32.0-36.0); Mean Platelet Volume 7.3 fL (6.9-10.8); Monocytes # (auto) 0.7 uL; Monocytes % (auto) 8.8 % (0.0-12.0); Neutrophils # (auto) 5.7 uL; Neutrophils % (auto) 72.1 % (37.0-80.0); Platelet Count (auto) 286 10^3/uL (140-450); Red Cell Distribution Width 12.7 % (11.8-14.3); White Blood Cell 7.8 10^3/uL (4.4-10.8)
[2017-04-04 06:02] LABS: Albumin 2.2 g/dL (3.4-5.0); Calcium 8.2 mg/dL (8.5-10.1); Potassium 3.7 mmol/L (3.5-5.1)
[2017-04-04 06:05] LABS: BUN/Creatinine Ratio 17.9
[2017-04-04 06:14] LABS: Bilirubin, Total 0.2 mg/dL (0.2-1.0); Total Protein 6.3 g/dL (6.4-8.2); Uric Acid 11.8 mg/dL (3.5-7.2)
[2017-04-04] MEDS: SODIUM BICARBONATE 50ML VIAL 75 ML in D5W 5% 1,000 ML IV SCH (06:45)
[2017-04-04] MEDS: Boost Glucose Control 8 Ounces PO SCH ×2 (08:29→12:06)
[2017-04-04] MEDS: CALCIUM ACETATE 667 MG CAP PO SCH (08:33)
[2017-04-04] MEDS: PANTOPRAZOLE 40 MG/10 ML VIAL IV SCH (09:26)
[2017-04-04] MEDS: FERROUS SULFATE 325 MG TAB PO SCH (09:26)
[2017-04-04] MEDS: GABAPENTIN 300 MG CAP PO SCH (09:27)
[2017-04-04] MEDS: amLODIPine BESYLATE 5 MG TAB PO SCH (09:27)
[2017-04-04] MEDS: MULTIPLE VITAMIN TAB PO SCH (09:27)
[2017-04-04] MEDS: NYSTATIN TOPICAL POWDER 15GM TOP SCH (10:00)
== END 2017-04-04 17:45 | disposition home or self-care (01) | DRG 469 ==
LOC: EDBD 01:29 → ER 01:32 → TELE 01:33 → DOU IN ICU 14:00 → TELE-CENTR 04-02 17:30
PROVIDERS: ADMIT Internal Medicine; ATTEND Hospitalist
DX: N17.0 Acute kidney failure with tubular necrosis (principal); I12.0 Hypertensive chronic kidney disease with stage 5 chronic kidney disease or end stage renal disease; E10.21 Type 1 diabetes mellitus with diabetic nephropathy; E44.0 Moderate protein-calorie malnutrition; K31.84 Gastroparesis; E10.42 Type 1 diabetes mellitus with diabetic polyneuropathy; E87.8 Other disorders of electrolyte and fluid balance, not elsewhere classified; E10.43 Type 1 diabetes mellitus with diabetic autonomic (poly)neuropathy; E87.5 Hyperkalemia; N18.6 End stage renal disease; E10.51 Type 1 diabetes mellitus with diabetic peripheral angiopathy without gangrene; E83.41 Hypermagnesemia; E10.22 Type 1 diabetes mellitus with diabetic chronic kidney disease; E83.51 Hypocalcemia; D63.8 Anemia in other chronic diseases classified elsewhere; E66.01 Morbid (severe) obesity due to excess calories; E83.39 Other disorders of phosphorus metabolism; J98.11 Atelectasis; K21.9 Gastro-esophageal reflux disease without esophagitis; Z68.45 Body mass index [BMI] 70 or greater, adult; Z87.440 Personal history of urinary (tract) infections; Z89.512 Acquired absence of left leg below knee; Z89.511 Acquired absence of right leg below knee
CPT/HCPCS: 36415; 51702; 71010; 76775; 80048; 80053; 80307; 81001; 82570; 82728; 82962; 83036; 83540; 83550; 83605; 83735; 83880; 84100; 84132; 84156; 84300; 84484; 84550; 85025; 85048; 85610; 87081; 87086; 93005; 96361; 96365; 96375; 97163; C9113; J0610; J1815; J2405; J3490; J7060

== ENCOUNTER 2018-07-15 11:46 | Inpatient (IN) | payer MEDICAID | END 2018-07-18 12:12 | disposition home or self-care (01) | LOC: ER 11:46 → TELE 16:48 → TELE-EAST 20:45 | DX: K20.9 Esophagitis, unspecified (principal); E11.21 Type 2 diabetes mellitus with diabetic nephropathy; E66.01 Morbid (severe) obesity due to excess calories; N13.6 Pyonephrosis; Z68.43 Body mass index [BMI] 50.0-59.9, adult; N18.3 Chronic kidney disease, stage 3 (moderate); F32.9 Major depressive disorder, single episode, unspecified; F41.9 Anxiety disorder, unspecified; Z83.3 Family history of diabetes mellitus; I12.9 Hypertensive chronic kidney disease with stage 1 through stage 4 chronic kidney disease, or unspecified chronic kidney disease; E11.22 Type 2 diabetes mellitus with diabetic chronic kidney disease; N39.0 Urinary tract infection, site not specified ==

== ENCOUNTER 2025-03-31 14:35 | Inpatient (IN) | payer MEDICAID ==
[~2025-03-31] VITALS: Ht 165.1 cm; Wt 161.2 kg
[~2025-03-31 14:35] MED LIST changes: +ALLO100T PO; +AMIT25TA20 PO; -AMIT25TA9 PO; +AMLO1TAB22 PO; -AMLO5TAB2 PO; -FERR325T PO; +FERR325T24 PO; +FOLI-119 PO; +FURO1TAB31 PO; +GABA-1250 PO; -GABA-497 PO; -HYDR-2651 PO; -HYDR-4663 PO; +HYDR-4833 PO; +HYDR25TA88 PO; -INSLANTI SC; +LEVO250T19 PO; -LEVO500T21 PO; -MET50T PO; -ONDA4TAB8 PO; +TAMS0.4C39 PO; +ZOLP5TAB5 PO
--- NOTE | 2025-03-31 15:37 | DVHINCON2 ---
Date of service: Mar 31, 2025 Reason for Consultation End-stage renal disease to start hemodialysis History of Present Illness Patient is a 49-year-old morbidly obese male with past medical history significant for Chronic Kidney Disease stage 5, diabetes mellitus type 2, gout, peripheral arterial disease status post bilateral above knee amputation, Congestive heart failure, hypertension and anemia of chronic kidney disease is admitted from my clinic for azotemia to initiate intermittent hemodialysis Past Medical History Diabetes mellitus, Chronic Kidney Disease stage 5, hypertension, gout, peripheral arterial disease, Congestive heart failure, anemia of chronic kidney disease Past Surgical History Bilateral above knee amputation Allergies: Coded Allergies: NO KNOWN ALLERGIES (Unverified , 09/10/18) Home Meds Active Scripts Levofloxacin (Levaquin) 250 Mg Tab, 250 MG PO DAILY, #11 TAB Prov:NAVNEET PLUMMER MD 06/24/19 Furosemide (Lasix) 40 Mg Tab, 80 MG PO DAILY, #60 TAB Prov:NAVNEET PLUMMER MD 06/24/19 Hydrocodone-Acetaminophen ([place] 5/325MG) 1 Tab Tb, 1 TAB PO Q6HP PRN, #10 TAB Prov:NAVNEET PLUMMER MD 03/16/17 Pantoprazole Sodium Sesquihydr (Pantoprazole Sodium) 40 Mg Tab, 40 MG PO DAILY, #30 TAB Prov:NAVNEET PLUMMER MD 03/16/17 Hydralazine Hcl (Hydralazine Hcl) 25 Mg Tab, 50 MG PO Q8HR, #90 TAB Prov:NAVNEET PLUMMER MD 03/16/17 Reported Medications Tamsulosin Hcl (Tamsulosin Hcl) 0.4 Mg Cap, 0.4 MG PO QPM for 30 Days, MG 06/22/19 Allopurinol (Allopurinol) 100 Mg Tab, 100 MG PO DAILY for 30 Days, MG 06/22/19 Folic Acid (Folic Acid) 1 Mg Tab, 1 MG PO DAILY for 30 Days, MG 06/22/19 Zolpidem Tartrate (Zolpidem Tartrate) 5 Mg Tab, 1 TAB PO QPM, #30 TAB 2 Refills 06/22/19 Gabapentin (Gabapentin) 300 Mg Cap, 300 MG PO DAILY for 30 Days, MG 03/14/17 Amitriptyline Hcl (Amitriptyline Hcl) 25 Mg Tab, 25 MG PO HS for 30 Days, MG 03/14/17 Ferrous Sulfate (Ferrous Sulfate) 325 Mg Tab, 325 MG PO DAILY for 30 Days 03/14/17 Amlodipine Besylate (Amlodipine Besylate) 5 Mg Tab, 10 MG PO Q12HR for 30 Days, MG 03/14/17 Family History: Diabetes mellitus G8 FATHER G8 MOTHER Heart murmur G8 FATHER Hypertension G8 FATHER G8 MOTHER Review of Systems All 12 item review of systems reviewed with the patient nonsignificant except what is mentioned in the history of present illness H&P Exam Vital Signs/I&O Vital Sign Date Time Temp Pulse Resp B/P (MAP) Pulse Ox O2 Delivery O2 Flow Rate FiO2 03/31/25 14:38 97.2 78 18 176/95 93 97.2 Physical Exam Obese patient lying comfortably in bed Lungs clear to auscultation bilaterally Cardiac exam regular rate and rhythm GI soft nontender was normal Extremity bilateral above knee amputation Neuro nonfocal Assessment Chronic Kidney Disease stage 5 now end-stage renal disease requiring initiation of hemodialysis Morbid obesity Diabetes mellitus type 2 Hypertension Peripheral arterial disease Below-knee amputation Chronic Congestive heart failure Gouty arthritis Anemia of chronic kidney disease Recommendations Radiology for tunneled IJ hemodialysis catheter Hemodialysis tomorrow after catheter replacement Epogen [id number] subQ 3 times weekly Resume home medications Fluid restrictions 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 I discussed my plan of care with the patient, his and the primary nurse at the bedside We will continue to follow Plan discussed with: Patient MILADY MÁRQUEZ MD Mar 31, 2025 15:37
--- NOTE | 2025-03-31 15:41 | DVH ---
CHEST RADIOGRAPH Indication: c/f volume overload Technique: Single frontal view of the chest was obtained Comparison: XR CHEST 1 VIEW on DOS: 07/30/24, XRAY CHEST 1 VIEW on DOS: 07/23/24, CHEST PORTABLE on DOS : 06/22/19 FINDINGS: Lines and Tubes: None Lungs: No focal consolidation. Pleura: No effusion. No pneumothorax. Cardiomediastinal contours: Mild cardiomegaly. Bones: No acute osseous abnormality. IMPRESSION: No acute cardiopulmonary disease. Mild cardiomegaly.
[2025-03-31 15:47] LABS: Hematocrit 33.1 % (41.0-53.0); Hemoglobin 11.1 g/dL (13.5-17.5); Mean Corpuscular Hemoglobin 31.8 pg (28.0-32.0); Mean Corpuscular Volume 95.3 fL (80.0-100.0); Nucleated Red Blood Cells % 0.0 %
[2025-03-31 15:54] LABS: Chloride 108 mmol/L (98-107); Potassium 4.5 mmol/L (3.5-5.1); Sodium 140 mmol/L (136-145)
[2025-03-31 15:55] LABS: Anion Gap 10 (5-15); Carbon Dioxide 22 mmol/L (20-31)
[2025-03-31 15:57] LABS: Calcium 8.5 mg/dL (8.7-10.4)
[2025-03-31 16:00] LABS: BUN/Creatinine Ratio 7.4 (10.0-20.0)
[2025-03-31 16:01] LABS: Magnesium 1.8 mg/dL (1.6-2.6)
[2025-03-31 16:02] LABS: Blood Urea Nitrogen 38 mg/dL (9-23); Glucose 267 mg/dL (74-106); Uric Acid 6.9 mg/dL (3.7-9.2)
[2025-03-31 16:04] LABS: INR 0.94 (0.9-1.15); Partial Thromboplastin Time 26.2 SEC (24.5-34.5); Prothrombin Time 10.0 sec (9.3-11.8)
--- NOTE | 2025-03-31 17:24 | ED.PDOC ---
History of Present Illness HPI Comments 49 y/o M, with PMHx of CKF, DM, GERD, HTN, anxiety, and depression presents to the ED for CC of hemodialysis catheter placement. Patient reports, that he was sent by his PCP () for hemodialysis catheter placement for ESRD. Patient denies weakness, fatigue, nausea, or vomiting. No other symptoms or modifying factors are present at this time. Chief Complaint: Abnormal LAB's Time Seen by MD: 17:15 Primary Care Provider: MACK Reviewed Notes: Nurses Notes, Medications, Allergies Allergies: Coded Allergies: NO KNOWN ALLERGIES (Unverified , 09/10/18) Home Meds Active Scripts Levofloxacin (Levaquin) 250 Mg Tab, 250 MG PO DAILY, #11 TAB Prov:NAVNEET PLUMMER MD 06/24/19 Furosemide (Lasix) 40 Mg Tab, 80 MG PO DAILY, #60 TAB Prov:NAVNEET PLUMMER MD 06/24/19 Hydrocodone-Acetaminophen ([place] 5/325MG) 1 Tab Tb, 1 TAB PO Q6HP PRN, #10 TAB Prov:NAVNEET PLUMMER MD 03/16/17 Pantoprazole Sodium Sesquihydr (Pantoprazole Sodium) 40 Mg Tab, 40 MG PO DAILY, #30 TAB Prov:NAVNEET PLUMMER MD 03/16/17 Hydralazine Hcl (Hydralazine Hcl) 25 Mg Tab, 50 MG PO Q8HR, #90 TAB Prov:NAVNEET PLUMMER MD 03/16/17 Reported Medications Tamsulosin Hcl (Tamsulosin Hcl) 0.4 Mg Cap, 0.4 MG PO QPM for 30 Days, MG 06/22/19 Allopurinol (Allopurinol) 100 Mg Tab, 100 MG PO DAILY for 30 Days, MG 06/22/19 Folic Acid (Folic Acid) 1 Mg Tab, 1 MG PO DAILY for 30 Days, MG 06/22/19 Zolpidem Tartrate (Zolpidem Tartrate) 5 Mg Tab, 1 TAB PO QPM, #30 TAB 2 Refills 06/22/19 Gabapentin (Gabapentin) 300 Mg Cap, 300 MG PO DAILY for 30 Days, MG 03/14/17 Amitriptyline Hcl (Amitriptyline Hcl) 25 Mg Tab, 25 MG PO HS for 30 Days, MG 03/14/17 Ferrous Sulfate (Ferrous Sulfate) 325 Mg Tab, 325 MG PO DAILY for 30 Days 03/14/17 Amlodipine Besylate (Amlodipine Besylate) 5 Mg Tab, 10 MG PO Q12HR for 30 Days, MG 03/14/17 Information Source: Patient Mode of Arrival: Wheelchair Severity: Moderate Timing: Minutes Duration: Since onset Prehospital treatment: None Past Medical History PAST MEDICAL HISTORY: Anxiety, CKF, Depression, DM, GERD, HTN Surgical History: BKA Family History Family History: Reviewed,noncontributory to illness Social History Smoker: Non-Smoker Alcohol: Denies ETOH Use Drugs: Denies Drug Use Lives In: Home Constitutional: denies: chills, diaphoresis, fatigue, fever, malaise, sweats, weakness, others EENTM: denies: blurred vision, double vision, ear bleeding, ear discharge, ear drainage, ear pain, ear ringing, eye pain, eye redness, hearing loss, mouth pain, mouth swelling, nasal discharge, nose bleeding, nose congestion, nose pain, photophobia, tearing, throat pain, throat swelling, voice changes, others Respiratory: denies: cough, hemoptysis, orthopnea, SOB at rest, shortness of breath, SOB with excertion, stridor, wheezing, others Cardiovascular: denies: chest pain, dizzy spells, diaphoresis, Dyspnea on exertion, edema, irregular heart beat, left arm pain, lightheadedness, palpitations, PND, syncope, others Gastrointestinal: denies: abdomen distended, abdominal pain, blood streaked bowels, constipated, diarrhea, dysphagia, difficulty swallowing, hematemesis, melena, nausea, poor appetite, poor fluid intake, rectal bleeding, rectal pain, vomiting, others Genitourinary: denies: burning, dysuria, flank pain, frequency, hematuria, incontinence, penile discharge, penile sore, pain, testicle pain, testicle swelling, urgency, others Neurological: denies: dizziness, fainting, headache, left sided numbness, left sided weakness, numbness, paresthesia, pre-existing deficit, right sided numbness, right sided weakness, seizure, speech problems, tingling, tremors, weakness, others Musculoskeletal: denies: back pain, gout, joint pain, joint swelling, muscle pain, muscle stiffness, neck pain, others Integumetry: denies: bruises, change in color, change in hair/nails, dryness, laceration, lesions, lumps, rash, wounds, others Allergic/Immunocompromised: denies: Difficulty Healing, Frequent Infections, Hives, Itching, others Hematologic/Lymphatic: denies: anemia, blood clots, easy bleeding, easy bruising, swollen glands, others Endocrine: denies: excessive hunger, excessive sweating, excessive thirst, excessive urination, flushing, intolerance to cold, intolerance to heat, unexplained weight gain, unexplained weight loss, others Psychiatric: denies: anxiety, bipolar disorder, depression, hopeless, panic disorder, schizophrenia, sleepless, suicidal, others All Other Systems: Reviewed and Negative Physical Exam General Appearance: No Apparent Distress, Normal HEENT: Normal ENT Inspection, Pharynx Normal Neck: Full Range of Motion, Non-Tender, Normal, Normal Inspection Respiratory: Chest Non-Tender, Lungs Clear, No Accessory Muscle Use, No Respiratory Distress, Normal Breath Sounds Cardiovascular: No Edema, No Murmur, No Gallop, Normal Peripheral Pulses, Regu lar Rate/Rhythm Breast Exam: Deferred Gastrointestinal: No Organomegaly, Non Tender, No Pulsatile Mass, Normal Bowel Sounds, Soft Genitalia: Deferred Pelvic: Deferred Rectal: Deferred Extremities: No calf tenderness, Normal capillary refill, Normal inspection, Normal range of motion, Non-tender, Pedal edema (4+) Musculoskeletal : Location: Bilateral Extremity Location: Foot Apperance: Normal, Other (amputee) Neurologic: Alert, casket trimmer II-XII nml as Tested, No Motor Deficits, Normal Affect, Normal Mood, No Sensory Deficits Cerebellar Function: Normal Reflexes: Normal Skin: Dry, Normal Color, Warm Lymphatic: No Adenopathy Was a procedure done? Was a procedure done?: No Differential Dx Considerations may include: Electrolyte abnormalities, infectious etiology, renal failure X-Ray, Labs, Meds, VS Vital Signs Date Time Temp Pulse Resp B/P (MAP) Pulse Ox O2 Delivery O2 Flow Rate FiO2 03/31/25 14:38 97.2 78 18 176/95 93 97.2 Lab Test 03/31/25 15:29 03/31/25 15:27 Range/Units Prothrombin Time 10.0 9.3-11.8 sec Prothrombin Time INR 0.94 0.9-1.15 Activated Partial Thromboplast Time 26.2 24.5-34.5 SEC White Blood Count 8.9 4.4-10.8 10^3/uL Red Blood Count 3.47 L 4.5-5.90 10^6/uL Hemoglobin 11.1 L 13.5-17.5 g/dL Hematocrit 33.1 L 41.0-53.0 % Mean Corpuscular Volume 95.3 80.0-100.0 fL Mean Corpuscular Hemoglobin 31.8 28.0-32.0 pg Mean Corpuscular Hemoglobin Concent 33.4 32.0-36.0 g/dL Red Cell Distribution Width 13.5 11.8-14.3 % Platelet Count 267 140-450 10^3/uL Mean Platelet Volume 7.7 6.9-10.8 fL Neutrophils (%) (Auto) 70.0 37.0-80.0 % Lymphocytes (%) (Auto) 20.5 10.0-50.0 % Monocytes (%) (Auto) 5.6 0.0-12.0 % Eosinophils (%) (Auto) 2.9 0.0-7.0 % Basophils (%) (Auto) 1.0 0.0-2.0 % Neutrophils # (Auto) 6.2 1.6-8.6 10 ^3/uL Lymphocytes # (Auto) 1.8 0.4-5.4 10 ^3/uL Monocytes # (Auto) 0.5 0-1.3 10 ^3/uL Eosinophils # (Auto) 0.3 0-0.8 10 ^3/uL Basophils # (Auto) 0.1 0-0.2 10 ^3/uL Nucleated Red Blood Cells 0.0 % Sodium Level 140 136-145 mmol/L Potassium Level 4.5 3.5-5.1 mmol/L Chloride Level 108 H 98-107 mmol/L Carbon Dioxide Level 22 20-31 mmol/L Anion Gap 10 5-15 Blood Urea Nitrogen 38 H 9-23 mg/dL Creatinine 5.12 H 0.700-1.30 mg/dL Glomerular Filtration Rate Calc 13 >90 mL/min BUN/Creatinine Ratio 7.4 L 10.0-20.0 Serum Glucose 267 H 74-106 mg/dL Uric Acid 6.9 3.7-9.2 mg/dL Calcium Level 8.5 L 8.7-10.4 mg/dL Phosphorus Level 3.7 2.4-5.1 mg/dL Magnesium Level 1.8 1.6-2.6 mg/dL B-Type Natriuretic Peptide 49.10 0-100 pg/mL Parathyroid Hormone (Intact) Pending Hepatitis B Surface Antigen Pending Hepatitis C Antibody Pending [address] [address] Ph: [phone] DIAGNOSTIC IMAGING Diagnostic Imaging Report : [id number] Signed PATIENT: TREVER BAILON LEANORDACCT: [id number] UNIT: [id number] : 1975 LOC: ER ROOM / BED: / AGE / SEX: 49 / M ADM STATUS: REG ER SERVICE 1502 ORDERING PHYSICIAN: ELOY MARR MD PROCEDURE(s): CXRP - CHEST PORTABLE REASON: c/f volume overload ORDER NUMBER(s): [id number], ACCESSION NUMBER(s): [id number] CHEST RADIOGRAPH Indication: c/f volume overload Technique: Single frontal view of the chest was obtained Comparison: XR CHEST 1 VIEW on DOS: 07/30/24, XRAY CHEST 1 VIEW on DOS: 07/23/24, CHEST PORTABLE on DOS: 06/22/19 FINDINGS: Lines and Tubes: None Lungs: No focal consolidation. Pleura: No effusion. No pneumothorax. Cardiomediastinal contours: Mild cardiomegaly. Bones: No acute osseous abnormality. IMPRESSION: No acute cardiopulmonary disease. Mild cardiomegaly. ATED BY: ANAIS FAITH DO DICTATED DATE/TIME: 03/31/25 1539 SIGNED BY: ANAIS FAITH DO SIGNED DATE/TIME: 03/31/25 1539 CC: Time of 1ST Reevaluation: 17:45 Reevaluation 1ST: Unchanged Patient Education/Counseling: Diagnosis, Treatment Family Education/Counseling: Diagnosis, Treatment SEPSIS Sepsis Screen Date sepsis recognized/suspect: Mar 31, 2025 Time Sepsis recognized/suspect: 1440 Recent Procedure: No On Antibiotic Therapy: No Respiratory Rate >20: No Heart Rate >90: No Temp<36 C (96.8 F) or >38.3 C: No SBP <90 or MAP <65 mmHG: No New Acute Mental Status Change: No Is the patient on CPAP, BIPAP,: No Physician Orders Chest Portable (03/31/25 15:02) *Dr. Miller [facility] (03/31/25 15:08) * Radiologist Consult (03/31/25 15:08) * Home Visit Field Care Manager Consult (03/31/25 ) Communication Order (03/31/25 15:29) Npo (Nothing By Mouth) Diet (04/01/25 Breakfast) Parathyroid Hormone Intact (03/31/25 15:39) Hepatitis C Antibody (03/31/25 15:39) Hepatitis B Surface Antigen (03/31/25 15:39) Vital Signs Date Time Temp Pulse Resp B/P (MAP) Pulse Ox O2 Delivery O2 Flow Rate FiO2 03/31/25 14:38 97.2 78 18 176/95 93 97.2 Laboratory Tests Test 03/31/25 15:27 White Blood Count 8.9 10^3/uL (4.4-10.8) Departure 1 Departure Time of Disposition: 17:36 (Patient with a worsening renal failure.Patient's health care administrator recommends admission for initiation of dialysis.) Impression: Primary Impression: Renal failure Qualified Codes: N17.9 - Acute kidney failure, unspecified; N18.5 - Chronic kidney disease, stage 5 Additional Impression: Generalized weakness Disposition: ADMITTED INPATIENT Admit to: Med Surg Condition: Serious Critical Care Note Critical Care Time?: No Stability Stability form required: No Heart Score Heart Score: Heart Score Response (Comments) Value History N/A 0 EKG N/A 0 Age N/A 0 Risk Factors N/A 0 Troponin N/A 0 Total 0 I personally scribed for ELOY MARR MD ([email or web address]) on 03/31/25 at 17:24. Electronically submitted by Nae Chen ([email or web address]). I personally scribed for ELOY MARR MD ([email or web address]) on 03/31/25 at 17:28. Electronically submitted by Nae Chen ([email or web address]). I personally scribed for ELOY MARR MD ([email or web address]) on 03/31/25 at 17:33. Electronically submitted by Nae Chen ([email or web address]). ELOY MARR MD Mar 31, 2025 17:24
[2025-03-31] MEDS ORDERED: ONDANSETRON HCL 4 MG/2 ML VIAL IV PRN (19:15)
[2025-03-31] MEDS ORDERED: ACETAMINOPHEN 325 MG TAB PO PRN (19:15)
[2025-03-31] MEDS ORDERED: DOCUSATE SOD 100 MG CAP PO PRN (19:15)
--- NOTE | 2025-03-31 19:20 | DVHHP2 ---
Admitting Diagnosis: worsening kidney failure History of Present Illness 49 y/o M, with PMHx of CKF, DM, GERD, HTN, anxiety, and depression presents to the ED for CC of hemodialysis catheter placement. Patient reports, that he was sent by his PCP () for hemodialysis catheter placement for ESRD. Patient denies weakness, fatigue, nausea, or vomiting. No other symptoms or modifying factors are present at this time. PAST MEDICAL HISTORY: Anxiety, CKF, Depression, DM, GERD, HTN Surgical History: BKA Family History: Reviewed,noncontributory to illness Social History Smoker: Non-Smoker Alcohol: Denies ETOH Use Drugs: Denies Drug Use Lives In: Home Patient Family History: Diabetes mellitus G8 FATHER G8 MOTHER Heart murmur G8 FATHER Hypertension G8 FATHER G8 MOTHER Allergies: Coded Allergies: NO KNOWN ALLERGIES (Unverified , 09/10/18) Home Meds Active Scripts Levofloxacin (Levaquin) 250 Mg Tab, 250 MG PO DAILY, #11 TAB Prov:NAVNEET PLUMMER MD 06/24/19 Furosemide (Lasix) 40 Mg Tab, 80 MG PO DAILY, #60 TAB Prov:NAVNEET PLUMMER MD 06/24/19 Hydrocodone-Acetaminophen ([place] 5/325MG) 1 Tab Tb, 1 TAB PO Q6HP PRN, #10 TAB Prov:ANVNEET PLUMMER MD 03/16/17 Pantoprazole Sodium Sesquihydr (Pantoprazole Sodium) 40 Mg Tab, 40 MG PO DAILY, #30 TAB Prov:NAVNEET PLUMMER MD 03/16/17 Hydralazine Hcl (Hydralazine Hcl) 25 Mg Tab, 50 MG PO Q8HR, #90 TAB Prov:NAVNEET PLUMMER MD 03/16/17 Reported Medications Tamsulosin Hcl (Tamsulosin Hcl) 0.4 Mg Cap, 0.4 MG PO QPM for 30 Days, MG 06/22/19 Allopurinol (Allopurinol) 100 Mg Tab, 100 MG PO DAILY for 30 Days, MG 06/22/19 Folic Acid (Folic Acid) 1 Mg Tab, 1 MG PO DAILY for 30 Days, MG 06/22/19 Zolpidem Tartrate (Zolpidem Tartrate) 5 Mg Tab, 1 TAB PO QPM, #30 TAB 2 Refills 06/22/19 Gabapentin (Gabapentin) 300 Mg Cap, 300 MG PO DAILY for 30 Days, MG 03/14/17 Amitriptyline Hcl (Amitriptyline Hcl) 25 Mg Tab, 25 MG PO HS for 30 Days, MG 03/14/17 Ferrous Sulfate (Ferrous Sulfate) 325 Mg Tab, 325 MG PO DAILY for 30 Days 03/14/17 Amlodipine Besylate (Amlodipine Besylate) 5 Mg Tab, 10 MG PO Q12HR for 30 Days, MG 03/14/17 Vital Signs Vital Signs Date Time Temp Pulse Resp B/P (MAP) Pulse Ox O2 Delivery O2 Flow Rate FiO2 03/31/25 18:07 72 16 177/103 (127) 98 03/31/25 14:38 97.2 97.2 Physical Exam gen 49 y.o. male, morbid obese, lying in bed. NAD. HEENT-atraumatic normocephalic Heart-regular regular rate and rate and rhythm Lungs decreased breath sounds bilaterally abdomen soft nontender nondistended Aaxvgwzciuoartx-nkbdr-lha-knee amputation. Mild edema at this time Neuro-AO x3, strength and sensory intact. SEPSIS Sepsis Screen Date sepsis recognized/suspect: Mar 31, 2025 Time Sepsis recognized/suspect: 1440 Recent Procedure: No On Antibiotic Therapy: No Respiratory Rate >20: No Heart Rate >90: No Temp<36 C (96.8 F) or >38.3 C: No SBP <90 or MAP <65 mmHG: No New Acute Mental Status Change: No Is the patient on CPAP, BIPAP,: No Physician Orders Chest Portable (03/31/25 15:02) *Dr. Miller [facility] (03/31/25 15:08) * Radiologist Consult (03/31/25 15:08) * Cell Cleaner Consult (03/31/25 ) Communication Order (03/31/25 15:29) Npo (Nothing By Mouth) Diet (04/01/25 Breakfast) Hepatitis C Antibody (03/31/25 15:39) Hepatitis B Surface Antigen (03/31/25 15:39) Admit (03/31/25 19:13) Code Status (03/31/25 19:13) Vital Signs .PER UNIT PROTOCOL (03/31/25 19:13) Review Orders With Adm. (03/31/25 19:13) Encourage Activity As Tolerate (03/31/25 19:13) Sodium Chloride Lock (Saline Lock Ns) (03/31/25 22:00) Docusate Sodium Capsule (Colace Capsule) (03/31/25:15) Acetaminophen Tablet (Tylenol Tablet) (03/31/25:15) Notify Md Of Changes From Base (03/31/25:13) Advance Directive (03/31/25:13) Patient Condition (03/31/25:) Allergies (03/31/25:13) Hydrocodone-Acet 5/325mg Tab ([place] 5/32 (03/31/25 19:15) Ondansetron Hcl (Zofran) (03/31/25:15) Complete Blood Count (04/01/25 05:00) Complete Blood Count (04/02/25 05:00) Complete Blood Count (04/03/25 05:00) Complete Blood Count (04/04/25 05:00) Complete Blood Count (04/05/25 05:00) Comprehensive Metabolic Panel (04/01/25 05:00) Comprehensive Metabolic Panel (04/02/25 05:00) Comprehensive Metabolic Panel (04/03/25 05:00) Comprehensive Metabolic Panel (04/04/25 05:00) Comprehensive Metabolic Panel (04/05/25 05:00) Allopurinol Tablet (Zyloprim Tablet) (04/01/25 10:00) Amitriptyline Hcl Tablet (Elavil Tablet) (03/31/25 22:00) Amlodipine Tablet (Norvasc Tablet) (03/31/25 22:00) Furosemide Tablet (Lasix Tablet) (04/01/25 10:00) Gabapentin Capsule (Neurontin Capsule) (04/01/25 10:00) Hydralazine Hcl Tablet (Apresoline Table (03/31/25 22:00) Pantoprazole Tablet (Protonix Tablet) (04/01/25 10:00) Tamsulosin Hydrochloride (Flomax) (04/01/25 18:00) (Nf) Ferrous Sulfate (04/01/25 10:00) (Nf) Folic Acid (04/01/25 10:00) Vital Signs Date Time Temp Pulse Resp B/P (MAP) Pulse Ox O2 Delivery O2 Flow Rate FiO2 03/31/25 18:07 72 16 177/103 (127) 98 03/31/25 14:38 97.2 78 18 176/95 93 97.2 Laboratory Tests Test 03/31/25 15:27 White Blood Count 8.9 10^3/uL (4.4-10.8) Results Labs Test 03/31/25 15:29 03/31/25 15:27 Range/Units Prothrombin Time 10.0 9.3-11.8 sec Prothrombin Time INR 0.94 0.9-1.15 Activated Partial Thromboplast Time 26.2 24.5-34.5 SEC White Blood Count 8.9 4.4-10.8 10^3/uL Red Blood Count 3.47 L 4.5-5.90 10^6/uL Hemoglobin 11.1 L 13.5-17.5 g/dL Hematocrit 33.1 L 41.0-53.0 % Mean Corpuscular Volume 95.3 80.0-100.0 fL Mean Corpuscular Hemoglobin 31.8 28.0-32.0 pg Mean Corpuscular Hemoglobin Concent 33.4 32.0-36.0 g/dL Red Cell Distribution Width 13.5 11.8-14.3 % Platelet Count 267 140-450 10^3/uL Mean Platelet Volume 7.7 6.9-10.8 fL Neutrophils (%) (Auto) 70.0 37.0-80.0 % Lymphocytes (%) (Auto) 20.5 10.0-50.0 % Monocytes (%) (Auto) 5.6 0.0-12.0 % Eosinophils (%) (Auto) 2.9 0.0-7.0 % Basophils (%) (Auto) 1.0 0.0-2.0 % Neutrophils # (Auto) 6.2 1.6-8.6 10 ^3/uL Lymphocytes # (Auto) 1.8 0.4-5.4 10 ^3/uL Monocytes # (Auto) 0.5 0-1.3 10 ^3/uL Eosinophils # (Auto) 0.3 0-0.8 10 ^3/uL Basophils # (Auto) 0.1 0-0.2 10 ^3/uL Nucleated Red Blood Cells 0.0 % Sodium Level 140 136-145 mmol/L Potassium Level 4.5 3.5-5.1 mmol/L Chloride Level 108 H 98-107 mmol/L Carbon Dioxide Level 22 20-31 mmol/L Anion Gap 10 5-15 Blood Urea Nitrogen 38 H 9-23 mg/dL Creatinine 5.12 H 0.700-1.30 mg/dL Glomerular Filtration Rate Calc 13 >90 mL/min BUN/Creatinine Ratio 7.4 L 10.0-20.0 Serum Glucose 267 H 74-106 mg/dL Uric Acid 6.9 3.7-9.2 mg/dL Calcium Level 8.5 L 8.7-10.4 mg/dL Phosphorus Level 3.7 2.4-5.1 mg/dL Magnesium Level 1.8 1.6-2.6 mg/dL B-Type Natriuretic Peptide 49.10 0-100 pg/mL Parathyroid Hormone (Intact) 257.5 H 18.4-80.1 pg/mL Primary Diagnosis End-stage renal disease requiring hemodialysis Plan Patient has seen by physician and found renal function is worsening plan for dialysis Nephrology consulted. IR consult for tunneled catheter placement Plan for hemodialysis after tunnel catheter placement Cosmetic consulted for chair Hep B and hep C check Resume home meds Daily labs Full code SCD for DVT prophylaxis No GI prophylaxis needed Plan discussed with: Patient Problems List: (1) Renal failure Status: Acute Date of Service: Mar 31, 2025 Billing Provider: FLORINA GOODRICH MD Common Visit Codes: [id number] INP/OBS CARE (HIGH) FLORINA GOODRICH MD Mar 31, 2025 19:20
[2025-03-31] MEDS: SODIUM CHLOR 0.9% PF (SALINE LOCK) 10ML VIAL/SYR IV SCH (21:53)
[2025-03-31] MEDS: HYDROcodone-ACET 5/325MG TAB PO PRN (21:53)
[2025-03-31] MEDS: AMITRIPTYLINE HCL 25 MG TAB PO SCH (21:54)
[2025-04-01] VITALS (11 sets, daily range): BP systolic 121–158; BP diastolic 83–104; PULSE 66–80; RESP 18–20; TEMP 97.2–98.2; O2SAT 96–99
[2025-04-01] MEDS ORDERED: ERGO1CAP23 PO (03:32)
[2025-04-01] MEDS ORDERED: CALC0.5C PO (03:32)
[2025-04-01] MEDS ORDERED: SODI650T PO (03:32)
[2025-04-01] MEDS ORDERED: SENN-58 PO (03:32)
[2025-04-01] MEDS ORDERED: SEMA2INJ3 SC (03:32)
[2025-04-01] MEDS ORDERED: DAPA1TAB4 PO (03:32)
[2025-04-01] MEDS ORDERED: CARV6.2551 PO (03:32)
[2025-04-01] MEDS ORDERED: POTA-215 PO (03:32)
[2025-04-01] MEDS: PANTOPRAZOLE 40 MG TAB PO SCH (05:26)
[2025-04-01 07:11] LABS: Hematocrit 29.3 % (41.0-53.0); Hemoglobin 9.8 g/dL (13.5-17.5); Mean Corpuscular Hemoglobin 31.5 pg (28.0-32.0); Mean Corpuscular Volume 94.2 fL (80.0-100.0); Nucleated Red Blood Cells % 0.0 %
[2025-04-01 07:25] LABS: Alanine Aminotransferase 10 U/L (7-40); Alkaline Phosphatase 54 U/L (46-116); Anion Gap 10 (5-15); BUN/Creatinine Ratio 8.5 (10.0-20.0); Carbon Dioxide 24 mmol/L (20-31); Potassium 3.8 mmol/L (3.5-5.1); Sodium 144 mmol/L (136-145); Total Protein 6.2 g/dL (5.7-8.2)
[2025-04-01 07:26] LABS: Albumin 3.3 g/dL (3.2-4.8)
[2025-04-01 07:29] LABS: Bilirubin, Total 0.2 mg/dL (0.2-1.0); Blood Urea Nitrogen 43 mg/dL (9-23); Calcium 8.4 mg/dL (8.7-10.4); Chloride 110 mmol/L (98-107); Glucose 163 mg/dL (74-106)
[2025-04-01] MEDS: ALLOPURINOL 100 MG TAB PO SCH (10:00)
[2025-04-01 10:10] LABS: Hepatitis B Surface Antigen Negative (Negative)
[2025-04-01 10:10] LABS: Hepatitis B Surface Antigen Negative (Negative)
[2025-04-01] MEDS: MIDAZOLAM HCL 2MG/2ML 2ml VIAL (1mg/ml) ONE (10:21)
[2025-04-01] MEDS: fentaNYL CITRATE 100 MCG/2 ML VL ONE (10:21)
[2025-04-01] MEDS: LIDOCAINE 2%HCL (LOCAL ANESTH.) INJ 20ML MDV ONE (10:22)
[2025-04-01] MEDS: HEPARIN SODIUM (PORCINE) 5000 UNITS/ML 1ML VIAL ONE (10:24)
[2025-04-01 10:28] LABS: Hepatitis C Antibody Negative (Negative)
[2025-04-01] MEDS: ceFAZolin 1GM/50ML 50 ML IV ONE (10:28)
[2025-04-01 10:29] LABS: Hepatitis C Antibody Negative (Negative)
[2025-04-01] MEDS: ONDANSETRON HCL 4 MG/2 ML VIAL ONE (10:35)
--- NOTE | 2025-04-01 11:46 | DVHPN2 ---
Reviewed: Care Plan, H&P, Labs, Medications, Previous Orders, Radiology Changes from previous H/P or p: No Changes Objective Vitals Vital Signs Date Time Temp Pulse Resp B/P (MAP) Pulse Ox O2 Delivery O2 Flow Rate FiO2 04/01/25 11:05 80 18 150/92 (111) 99 04/01/25 08:33 98.2 98.2 04/01/25 00:33 Room Air* 0 21 Intake/Output Intake and Output 04/01/25 07:00 Intake Total 450 ml Balance 450 ml Intake Oral 450 ml # Voids 3 Medications Current Medications Medications Dose Ordered Sig/Tam Route Start Time Stop Time Status Last Admin Dose Admin Sodium Chloride 10 ml Q8HR IV 03/31/25 22:00 04/01/25 05:27 10 ML Docusate Sodium 100 mg BIDPRN PRN PO 03/31/25 19:15 Acetaminophen 650 mg Q6HP PRN PO 03/31/25 19:15 Acetaminophen/ Hydrocodone Bitart 1 tab Q4HP PRN PO 03/31/25 19:15 03/31/25 21:53 1 TAB Ondansetron HCl 4 mg Q4HP PRN IV 03/31/25 19:15 Allopurinol 100 mg DAILY PO 04/01/25 10:00 Amitriptyline HCl 25 mg HS PO 03/31/25 22:00 03/31/25 21:54 25 MG Amlodipine Besylate 10 mg Q12HR PO 03/31/25 22:00 Furosemide 80 mg DAILY PO 04/01/25 10:00 Gabapentin 300 mg DAILY PO 04/01/25 10:00 Hydralazine HCl 50 mg Q8HR PO 03/31/25 22:00 04/01/25 05:26 50 MG Pantoprazole Sodium 40 mg DAILY@0700 PO 04/01/25 07:00 04/01/25 05:26 40 MG Tamsulosin HCl 0.4 mg QPM PO 04/01/25 18:00 Ferrous Sulfate 325 mg DAILY PO 04/01/25 10:00 Folic Acid 1 mg DAILY PO 04/01/25 10:00 Laboratory Results Laboratory Tests 04/01/25 06:38 Chemistry Test 03/31/25 15:27 04/01/25 06:38 Calcium Level 8.5 mg/dL (8.7-10.4) L 8.4 mg/dL (8.7-10.4) L Magnesium Level 1.8 mg/dL (1.6-2.6) Phosphorus Level 3.7 mg/dL (2.4-5.1) Albumin 3.3 g/dL (3.2-4.8) Total Protein 6.2 g/dL (5.7-8.2) Coagulation Test 03/31/25 15:29 Prothrombin Time 10.0 sec (9.3-11.8) Prothrombin Time INR 0.94 (0.9-1.15) Activated Partial Thromboplast Time 26.2 SEC (24.5-34.5) Cardiac Markers Test 03/31/25 15:27 B-Type Natriuretic Peptide 49.10 pg/mL (0-100) LFT Test 04/01/25 06:38 Alanine Aminotransferase (ALT) 10 U/L (7-40) Alkaline Phosphatase 54 U/L (46-116) Aspartate Amino Transferase (AST) 12 U/L (13-40) L Total Bilirubin 0.2 mg/dL (0.2-1.0) Labs and/or images reviewed: Labs reviewed by me, Image(s) reviewed by me Assessment/Plan Assessment/Plan ESRD requiring new onset hemo dialysis,consult by Dr. Shea appreciated Requiring insertion of hemodialysis cath Radiology consult Depression Anxiety Diabetes Hypertension Time spent 50 minutes Plan discussed with: Patient Date of Service: Apr 01, 2025 Billing Provider: MONISHA BLANDON MD Common Visit Codes: [id number] INP/OBS CARE(HIGH) MONISHA BLANDON MD Apr 01, 2025 11:46
--- NOTE | 2025-04-01 12:12 | DVH ---
XY Insertion of Venous Cath, HISTORY: HD CATH PLACEMENT PROCEDURE: Informed consent was obtained. The patient was placed supine on the interventional table. A limited localization ultrasound of the right neck base was obtained. 1 gram of Ancef was given IV. The right neck base and upper chest were prepped with chlorhexidine which was allowed to dry and drap ed in the usual sterile fashion. Time out was performed. IV sedation was administered. The skin and t he soft tissues were infiltrated with 1% Lidocaine. With real-time ultrasound guidance, the internal jugular vein was accessed with a micropuncture kit, and an image documenting patency was recorded to PACS. A subcutaneous tunneled tract was created from the right upper chest to the venotomy site. A 14 .5 [place] Path, 23 cm long hemodialysis catheter was advanced through the tunneled tract. Fluoroscopy was used to advance a guidewire through the internal jugular vein into the inferior vena cava. Following serial dilatation, a 15 [place] peel-away sheath was introduced, though which was adva nced the catheter into the right atrium. The catheter tip position was confirmed with fluoroscopy. Th ere was satisfactory flow in both lumens. The catheter lumens were flushed with saline and heparin wa s left indwelling in the catheter. A post-procedure image of the chest was obtained. The neck incisio n site was closed with Dermabond and dressed sterilely. The catheter was sutured at the skin surface and exit site also dressed sterilely. No immediate complication was identified. DAP 209 FLUOROSCOPY TIME: 1.3 minutes. SEDATION: Dr. Stephie Bruce was personally responsible for the administration of moderate sedation during the procedure performed, including the use of an independent trained observer who had no other duties during the procedure. The drugs utilized were IV fentanyl and versed (see nursing log for details). The total time of supervision by the attending physician was approximately 30 minutes. FINDINGS: Widely patent right IJV. Post procedure image demonstrates smooth course of the hemodialysi s catheter with the tip in the right atrium. IMPRESSION: Placement of 14.5 [place] [address], 23 cm long hemodialysis catheter through right internal jugular vein. Plan: Please contact IR for removal when no longer needed.
[2025-04-01] MEDS: GABAPENTIN 300 MG CAP PO SCH (12:46)
[2025-04-01] MEDS: FERROUS SULFATE 325mg EC TAB PO SCH (12:46)
[2025-04-01] MEDS: FOLIC ACID 1 MG TAB PO SCH (12:46)
[2025-04-01] MEDS: FUROSEMIDE 40 MG TAB PO SCH (12:46)
[2025-04-01] MEDS ORDERED: SODIUM CHL 0.9% 1000 ML BAG XX ONE (13:45)
[2025-04-01] MEDS: TAMSULOSIN HYDROCHLORIDE 0.4 MG CAP PO SCH (17:47)
--- NOTE | 2025-04-01 17:56 | DVHPN2 ---
Progress Note Date Seen: Apr 01, 2025 Medical Necessity Reason Pt with a Central, PICC or Fol: No Subjective Patient reports: No new complaints Review of Systems: Deferred Objective vital signs Vital Sign Date Time Temp Pulse Resp B/P (MAP) Pulse Ox O2 Delivery O2 Flow Rate FiO2 04/01/25 16:50 98.0 78 18 158/100 (119) 98 98.0 04/01/25 08:00 Room Air* 0 21 Total Intake and Output 03/31/25 03/31/25 04/01/25 15:00 23:00 07:00 Intake Total 450 ml Balance 450 ml medications Current Medications Medications Dose Ordered Sig/Tam Route Start Time Stop Time Status Last Admin Dose Admin Sodium Chloride 10 ml Q8HR IV 03/31/25 22:00 04/01/25 14:00 10 ML Docusate Sodium 100 mg BIDPRN PRN PO 03/31/25 19:15 Acetaminophen 650 mg Q6HP PRN PO 03/31/25 19:15 Acetaminophen/ Hydrocodone Bitart 1 tab Q4HP PRN PO 03/31/25 19:15 04/01/25 17:49 1 TAB Ondansetron HCl 4 mg Q4HP PRN IV 03/31/25 19:15 Allopurinol 100 mg DAILY PO 04/01/25 10:00 04/01/25 10:00 100 MG Amitriptyline HCl 25 mg HS PO 03/31/25 22:00 03/31/25 21:54 25 MG Amlodipine Besylate 10 mg Q12HR PO 03/31/25 22:00 04/01/25 12:45 10 MG Furosemide 80 mg DAILY PO 04/01/25 10:00 04/01/25 12:46 80 MG Gabapentin 300 mg DAILY PO 04/01/25 10:00 04/01/25 12:46 300 MG Hydralazine HCl 50 mg Q8HR PO 03/31/25 22:00 04/01/25 05:26 50 MG Pantoprazole Sodium 40 mg DAILY@0700 PO 04/01/25 07:00 04/01/25 05:26 40 MG Tamsulosin HCl 0.4 mg QPM PO 04/01/25 18:00 04/01/25 17:47 0.4 MG Ferrous Sulfate 325 mg DAILY PO 04/01/25 10:00 04/01/25 12:46 325 MG Folic Acid 1 mg DAILY PO 04/01/25 10:00 04/01/25 12:46 1 MG Examination: GENERAL:Normal, LUNGS:Normal, MSK:Normal, NEURO:Normal laboratory and microbiology Laboratory Tests 04/01/25 06:38 Test 04/01/25 06:38 Range/Units Serum Glucose 163 #H 74-106 mg/dL Problem List/Assessment/Plan Problem List/Assessment/Plan Chronic Kidney Disease stage 5 now end-stage renal disease requiring initiation of hemodialysis Morbid obesity Diabetes mellitus type 2 Hypertension Peripheral arterial disease Below-knee amputation Chronic Congestive heart failure Gouty arthritis Anemia of chronic kidney disease Recommendations s/p tunneled IJ hemodialysis catheter Hemodialysis today Epogen 69268 subQ 3 times weekly Resume home medications Fluid restrictions Renal diet social welfare research worker for outpatient hemodialysis chair time at [facility] dialysis We will continue to follow-up Plan discussed with: Other My Orders My Orders Orders - ENRIQUETA MICHELLE MD Procedure Category Date Status Time Hemodialysis Orders ORDERS 04/01/25 Transmitted 13:35 Dialysis Nursing [place] 04/01/25 In Process Message 13:35 Document Fluid Input [place] 04/01/25 In Process And Outpu 13:35 ENRIQUETA MICHELLE MD Apr 01, 2025 17:56
[2025-04-02] VITALS (7 sets, daily range): BP systolic 98–137; BP diastolic 61–87; PULSE 62–79; RESP 16–20; TEMP 97.6–98.2; O2SAT 97–100
[2025-04-02 08:09] LABS: Albumin 3.6 g/dL (3.2-4.8); Alkaline Phosphatase 58 U/L (46-116); Anion Gap 13 (5-15); BUN/Creatinine Ratio 7.4 (10.0-20.0); Carbon Dioxide 21 mmol/L (20-31); Chloride 106 mmol/L (98-107); Potassium 4.1 mmol/L (3.5-5.1); Sodium 140 mmol/L (136-145); Total Protein 7.0 g/dL (5.7-8.2)
[2025-04-02 08:13] LABS: Alanine Aminotransferase < 9 U/L (7-40); Bilirubin, Total < 0.2 mg/dL (0.2-1.0); Blood Urea Nitrogen 34 mg/dL (9-23); Calcium 8.5 mg/dL (8.7-10.4); Glucose 167 mg/dL (74-106)
[2025-04-02 08:41] LABS: Hematocrit 32.9 % (41.0-53.0); Hemoglobin 10.8 g/dL (13.5-17.5); Mean Corpuscular Hemoglobin 31.3 pg (28.0-32.0); Mean Corpuscular Volume 95.1 fL (80.0-100.0); Nucleated Red Blood Cells % 0.2 %
--- NOTE | 2025-04-02 11:59 | DVHPN2 ---
Reviewed: Care Plan, H&P, Labs, Medications, Previous Orders, Radiology Changes from previous H/P or p: No Changes Objective Vitals Vital Signs Date Time Temp Pulse Resp B/P (MAP) Pulse Ox O2 Delivery O2 Flow Rate FiO2 04/02/25 09:00 98.2 62 18 120/70 (87) 98 98.2 04/01/25 20:00 Room Air* 0 21 Intake/Output Intake and Output 04/02/25 07:00 Intake Total 1000 ml Balance 1000 ml Intake Oral 1000 ml # Voids 8 Medications Current Medications Medications Dose Ordered Sig/Tam Route Start Time Stop Time Status Last Admin Dose Admin Sodium Chloride 10 ml Q8HR IV 03/31/25 22:00 04/02/25 06:15 10 ML Docusate Sodium 100 mg BIDPRN PRN PO 03/31/25 19:15 Acetaminophen 650 mg Q6HP PRN PO 03/31/25 19:15 Acetaminophen/ Hydrocodone Bitart 1 tab Q4HP PRN PO 03/31/25 19:15 04/02/25 06:19 1 TAB Ondansetron HCl 4 mg Q4HP PRN IV 03/31/25 19:15 Allopurinol 100 mg DAILY PO 04/01/25 10:00 04/02/25 11:19 100 MG Amitriptyline HCl 25 mg HS PO 03/31/25 22:00 03/31/25 21:54 25 MG Amlodipine Besylate 10 mg Q12HR PO 03/31/25 22:00 04/01/25 22:57 10 MG Furosemide 80 mg DAILY PO 04/01/25 10:00 04/01/25 12:46 80 MG Gabapentin 300 mg DAILY PO 04/01/25 10:00 04/02/25 11:19 300 MG Hydralazine HCl 50 mg Q8HR PO 03/31/25 22:00 04/02/25 06:19 50 MG Pantoprazole Sodium 40 mg DAILY@0700 PO 04/01/25 07:00 04/02/25 06:18 40 MG Tamsulosin HCl 0.4 mg QPM PO 04/01/25 18:00 04/01/25 17:47 0.4 MG Ferrous Sulfate 325 mg DAILY PO 04/01/25 10:00 04/02/25 11:19 325 MG Folic Acid 1 mg DAILY PO 04/01/25 10:00 04/02/25 11:19 1 MG Laboratory Results Laboratory Tests 04/02/25 06:48 Chemistry Test 04/02/25 06:48 Albumin 3.6 g/dL (3.2-4.8) Calcium Level 8.5 mg/dL (8.7-10.4) L Total Protein 7.0 g/dL (5.7-8.2) LFT Test 04/02/25 06:48 Alanine Aminotransferase (ALT) < 9 U/L (7-40) Alkaline Phosphatase 58 U/L (46-116) Aspartate Amino Transferase (AST) 14 U/L (13-40) Total Bilirubin < 0.2 mg/dL (0.2-1.0) L Labs and/or images reviewed: Labs reviewed by me, Image(s) reviewed by me Assessment/Plan Assessment/Plan ESRD requiring new onset hemo dialysis,consult by Dr. Shea appreciated Requiring insertion of hemodialysis cath Radiology consult Depression Anxiety Diabetes Hypertension Time spent 50 minutes social services specialist working on outpatient chair time Plan discussed with: Patient My Orders Orders - MONISHA BLANDON MD Procedure Category Date Status Time Complete Blood Count LAB 04/03/25 Verified 04:00 Comprehensive LAB 04/03/25 Verified Metabolic Panel 04:00 Complete Blood Count LAB 04/04/25 Verified 04:00 Comprehensive LAB 04/04/25 Verified Metabolic Panel 04:00 Date of Service: Apr 02, 2025 Billing Provider: MONISHA BLANDON MD Common Visit Codes: [id number] INP/OBS CARE(HIGH) MONISHA BLANDON MD Apr 02, 2025 11:59
--- NOTE | 2025-04-02 15:13 | DVHPN2 ---
Progress Note Date Seen: Apr 02, 2025 Medical Necessity Reason Pt with a Central, PICC or Fol: No Subjective Patient reports: No new complaints Review of Systems: Deferred Objective vital signs Vital Sign Date Time Temp Pulse Resp B/P (MAP) Pulse Ox O2 Delivery O2 Flow Rate FiO2 04/02/25 12:59 97.7 67 20 125/80 (95) 99 97.7 04/02/25 07:50 Room Air* 0 21 Total Intake and Output 04/01/25 04/01/25 04/02/25 15:00 23:00 07:00 Intake Total 200 ml 800 ml Balance 200 ml 800 ml medications Current Medications Medications Dose Ordered Sig/Tam Route Start Time Stop Time Status Last Admin Dose Admin Sodium Chloride 10 ml Q8HR IV 03/31/25 22:00 04/02/25 14:14 10 ML Docusate Sodium 100 mg BIDPRN PRN PO 03/31/25 19:15 Acetaminophen 650 mg Q6HP PRN PO 03/31/25 19:15 Acetaminophen/ Hydrocodone Bitart 1 tab Q4HP PRN PO 03/31/25 19:15 04/02/25 06:19 1 TAB Ondansetron HCl 4 mg Q4HP PRN IV 03/31/25 19:15 Allopurinol 100 mg DAILY PO 04/01/25 10:00 04/02/25 11:19 100 MG Amitriptyline HCl 25 mg HS PO 03/31/25 22:00 03/31/25 21:54 25 MG Amlodipine Besylate 10 mg Q12HR PO 03/31/25 22:00 04/01/25 22:57 10 MG Furosemide 80 mg DAILY PO 04/01/25 10:00 04/01/25 12:46 80 MG Gabapentin 300 mg DAILY PO 04/01/25 10:00 04/02/25 11:19 300 MG Hydralazine HCl 50 mg Q8HR PO 03/31/25 22:00 04/02/25 06:19 50 MG Pantoprazole Sodium 40 mg DAILY@0700 PO 04/01/25 07:00 04/02/25 06:18 40 MG Tamsulosin HCl 0.4 mg QPM PO 04/01/25 18:00 04/01/25 17:47 0.4 MG Ferrous Sulfate 325 mg DAILY PO 04/01/25 10:00 04/02/25 11:19 325 MG Folic Acid 1 mg DAILY PO 04/01/25 10:00 04/02/25 11:19 1 MG Examination: GENERAL:Normal, HEENT:Normal, NECK:Normal, LUNGS:Normal, CVS:Normal, ABDOMEN:Normal laboratory and microbiology Laboratory Tests 04/02/25 06:48 Test 04/02/25 06:48 Range/Units Serum Glucose 167 H 74-106 mg/dL Microbiology Date/Time Source Procedure Growth Status 04/01/25 05:30 Nose MRSA Screen - Final Complete Problem List/Assessment/Plan Problem List/Assessment/Plan Chronic Kidney Disease stage 5 now end-stage renal disease requiring initiation of hemodialysis Morbid obesity Diabetes mellitus type 2 Hypertension Peripheral arterial disease Below-knee amputation Chronic Congestive heart failure Gouty arthritis Anemia of chronic kidney disease Recommendations s/p tunneled IJ hemodialysis catheter Epogen 83983 subQ 3 times weekly Resume home medications Fluid restrictions Renal diet care worker for outpatient hemodialysis chair time at [facility] dialysis We will continue to follow-up Plan discussed with: Patient My Orders My Orders Orders - ENRIQUETA MICHELLE MD Procedure Category Date Status Time Hemodialysis Orders ORDERS 04/02/25 Transmitted 04:00 ENRIQUETA MICHELLE MD Apr 02, 2025 15:13
[2025-04-03] VITALS (9 sets, daily range): BP systolic 116–160; BP diastolic 63–90; PULSE 72–82; RESP 16–18; TEMP 97.6–98.8; O2SAT 95–100
[2025-04-03 06:29] LABS: Albumin 4.0 g/dL (3.2-4.8); Alkaline Phosphatase 67 U/L (46-116); Anion Gap 12 (5-15); BUN/Creatinine Ratio 9.1 (10.0-20.0); Calcium 8.9 mg/dL (8.7-10.4); Carbon Dioxide 25 mmol/L (20-31); Chloride 102 mmol/L (98-107); Potassium 4.1 mmol/L (3.5-5.1); Sodium 139 mmol/L (136-145); Total Protein 7.8 g/dL (5.7-8.2)
[2025-04-03 06:36] LABS: Hematocrit 34.0 % (41.0-53.0); Hemoglobin 11.4 g/dL (13.5-17.5); Mean Corpuscular Hemoglobin 31.9 pg (28.0-32.0); Mean Corpuscular Volume 94.9 fL (80.0-100.0); Nucleated Red Blood Cells % 0.0 %
[2025-04-03 06:43] LABS: Alanine Aminotransferase 9 U/L (7-40); Bilirubin, Total < 0.2 mg/dL (0.2-1.0); Blood Urea Nitrogen 48 mg/dL (9-23); Glucose 172 mg/dL (74-106)
--- NOTE | 2025-04-03 08:55 | DVHPN2 ---
Progress Note Date Seen: Apr 03, 2025 Medical Necessity Reason Pt with a Central, PICC or Fol: No Subjective Patient reports: No new complaints Review of Systems: Deferred Objective vital signs Vital Sign Date Time Temp Pulse Resp B/P (MAP) Pulse Ox O2 Delivery O2 Flow Rate FiO2 04/03/25 05:49 138/88 04/03/25 04:15 97.9 72 16 98 97.9 04/02/25 20:00 Room Air* 0 21 Total Intake and Output 04/02/25 04/02/25 04/03/25 15:00 23:00 07:00 Intake Total 1058 ml 1500 ml Output Total 775 ml 800 ml Balance 283 ml 700 ml medications Current Medications Medications Dose Ordered Sig/Tam Route Start Time Stop Time Status Last Admin Dose Admin Sodium Chloride 10 ml Q8HR IV 03/31/25 22:00 04/03/25 05:48 10 ML Docusate Sodium 100 mg BIDPRN PRN PO 03/31/25 19:15 Acetaminophen 650 mg Q6HP PRN PO 03/31/25 19:15 Acetaminophen/ Hydrocodone Bitart 1 tab Q4HP PRN PO 03/31/25 19:15 04/02/25 17:34 1 TAB Ondansetron HCl 4 mg Q4HP PRN IV 03/31/25 19:15 Allopurinol 100 mg DAILY PO 04/01/25 10:00 04/02/25 11:19 100 MG Amitriptyline HCl 25 mg HS PO 03/31/25 22:00 03/31/25 21:54 25 MG Amlodipine Besylate 10 mg Q12HR PO 03/31/25 22:00 04/02/25 23:01 10 MG Furosemide 80 mg DAILY PO 04/01/25 10:00 04/01/25 12:46 80 MG Gabapentin 300 mg DAILY PO 04/01/25 10:00 04/02/25 11:19 300 MG Hydralazine HCl 50 mg Q8HR PO 03/31/25 22:00 04/03/25 05:49 50 MG Pantoprazole Sodium 40 mg DAILY@0700 PO 04/01/25 07:00 04/03/25 06:22 40 MG Tamsulosin HCl 0.4 mg QPM PO 04/01/25 18:00 04/02/25 18:21 0.4 MG Ferrous Sulfate 325 mg DAILY PO 04/01/25 10:00 04/02/25 11:19 325 MG Folic Acid 1 mg DAILY PO 04/01/25 10:00 04/02/25 11:19 1 MG laboratory and microbiology Laboratory Tests 04/03/25 04:28 Test 04/03/25 04:28 Range/Units Serum Glucose 172 H 74-106 mg/dL Microbiology Date/Time Source Procedure Growth Status 04/01/25 05:30 Nose MRSA Screen - Final Complete Problem List/Assessment/Plan Problem List/Assessment/Plan Chronic Kidney Disease stage 5 now end-stage renal disease requiring initiation of hemodialysis Morbid obesity Diabetes mellitus type 2 Hypertension Peripheral arterial disease Below-knee amputation Chronic Congestive heart failure Gouty arthritis Anemia of chronic kidney disease Recommendations hd today s/p tunneled IJ hemodialysis catheter Epogen 10291 subQ 3 times weekly Resume home medications Fluid restrictions Renal diet tree worker for outpatient hemodialysis chair time at [facility] dialysis We will continue to follow-up Plan discussed with: Patient, Other ENRIQUETA MICHELLE MD Apr 03, 2025 08:55
--- NOTE | 2025-04-03 12:59 | DVHPN2 ---
Reviewed: Care Plan, H&P, Labs, Medications, Previous Orders, Radiology Changes from previous H/P or p: No Changes Objective Vitals Vital Signs Date Time Temp Pulse Resp B/P (MAP) Pulse Ox O2 Delivery O2 Flow Rate FiO2 04/03/25 09:00 98.4 82 18 125/72 (89) 95 98.4 04/03/25 08:00 Room Air* 0 21 Intake/Output Intake and Output 04/03/25 07:00 Intake Total 2558 ml Output Total 1575 ml Balance 983 ml Intake Oral 2558 ml Output Urine Total 1575 ml # Voids 5 Medications Current Medications Medications Dose Ordered Sig/Tam Route Start Time Stop Time Status Last Admin Dose Admin Sodium Chloride 10 ml Q8HR IV 03/31/25 22:00 04/03/25 05:48 10 ML Docusate Sodium 100 mg BIDPRN PRN PO 03/31/25 19:15 Acetaminophen 650 mg Q6HP PRN PO 03/31/25 19:15 Acetaminophen/ Hydrocodone Bitart 1 tab Q4HP PRN PO 03/31/25 19:15 04/02/25 17:34 1 TAB Ondansetron HCl 4 mg Q4HP PRN IV 03/31/25 19:15 Allopurinol 100 mg DAILY PO 04/01/25 10:00 04/03/25 10:48 100 MG Amitriptyline HCl 25 mg HS PO 03/31/25 22:00 03/31/25 21:54 25 MG Amlodipine Besylate 10 mg Q12HR PO 03/31/25 22:00 04/02/25 23:01 10 MG Furosemide 80 mg DAILY PO 04/01/25 10:00 04/01/25 12:46 80 MG Gabapentin 300 mg DAILY PO 04/01/25 10:00 04/03/25 10:48 300 MG Hydralazine HCl 50 mg Q8HR PO 03/31/25 22:00 04/03/25 05:49 50 MG Pantoprazole Sodium 40 mg DAILY@0700 PO 04/01/25 07:00 04/03/25 06:22 40 MG Tamsulosin HCl 0.4 mg QPM PO 04/01/25 18:00 04/02/25 18:21 0.4 MG Ferrous Sulfate 325 mg DAILY PO 04/01/25 10:00 04/03/25 10:48 325 MG Folic Acid 1 mg DAILY PO 04/01/25 10:00 04/03/25 10:48 1 MG Laboratory Results Laboratory Tests 04/03/25 04:28 Chemistry Test 04/03/25 04:28 Albumin 4.0 g/dL (3.2-4.8) Calcium Level 8.9 mg/dL (8.7-10.4) Total Protein 7.8 g/dL (5.7-8.2) LFT Test 04/03/25 04:28 Alanine Aminotransferase (ALT) 9 U/L (7-40) Alkaline Phosphatase 67 U/L (46-116) Aspartate Amino Transferase (AST) 14 U/L (13-40) Total Bilirubin < 0.2 mg/dL (0.2-1.0) L Microbiology Microbiology Date/Time Source Procedure Growth Status 04/01/25 05:30 Nose MRSA Screen - Final Complete Labs and/or images reviewed: Labs reviewed by me, Image(s) reviewed by me Assessment/Plan Assessment/Plan ESRD requiring new onset hemo dialysis,consult by Dr. Shea appreciated Requiring insertion of hemodialysis cath Radiology consult Depression Anxiety Diabetes Hypertension Time spent 55 minutes technical services librarian working on outpatient chair time Plan discussed with: Patient Date of Service: Apr 03, 2025 Billing Provider: MONISHA BLANDON MD Common Visit Codes: [id number] INP/OBS CARE(HIGH) MONISHA BLANDON MD Apr 03, 2025 12:59
--- NOTE | 2025-04-03 18:19 | DVHPN2 ---
Progress Note Date Seen: Apr 03, 2025 Medical Necessity Reason Pt with a Central, PICC or Fol: No Subjective Patient reports: Other (No new complaints) Review of Systems: Deferred Objective vital signs Vital Sign Date Time Temp Pulse Resp B/P (MAP) Pulse Ox O2 Delivery O2 Flow Rate FiO2 04/03/25 16:46 97.6 76 18 157/81 (106) 96 97.6 04/03/25 08:00 Room Air* 0 21 Total Intake and Output 04/02/25 04/02/25 04/03/25 15:00 23:00 07:00 Intake Total 1058 ml 1500 ml Output Total 775 ml 800 ml Balance 283 ml 700 ml medications Current Medications Medications Dose Ordered Sig/Tam Route Start Time Stop Time Status Last Admin Dose Admin Sodium Chloride 10 ml Q8HR IV 03/31/25 22:00 04/03/25 14:00 10 ML Docusate Sodium 100 mg BIDPRN PRN PO 03/31/25 19:15 Acetaminophen 650 mg Q6HP PRN PO 03/31/25 19:15 Acetaminophen/ Hydrocodone Bitart 1 tab Q4HP PRN PO 03/31/25 19:15 04/02/25 17:34 1 TAB Ondansetron HCl 4 mg Q4HP PRN IV 03/31/25 19:15 Allopurinol 100 mg DAILY PO 04/01/25 10:00 04/03/25 10:48 100 MG Amitriptyline HCl 25 mg HS PO 03/31/25 22:00 03/31/25 21:54 25 MG Amlodipine Besylate 10 mg Q12HR PO 03/31/25 22:00 04/02/25 23:01 10 MG Furosemide 80 mg DAILY PO 04/01/25 10:00 04/01/25 12:46 80 MG Gabapentin 300 mg DAILY PO 04/01/25 10:00 04/03/25 10:48 300 MG Hydralazine HCl 50 mg Q8HR PO 03/31/25 22:00 04/03/25 05:49 50 MG Pantoprazole Sodium 40 mg DAILY@0700 PO 04/01/25 07:00 04/03/25 06:22 40 MG Tamsulosin HCl 0.4 mg QPM PO 04/01/25 18:00 04/02/25 18:21 0.4 MG Ferrous Sulfate 325 mg DAILY PO 04/01/25 10:00 04/03/25 10:48 325 MG Folic Acid 1 mg DAILY PO 04/01/25 10:00 04/03/25 10:48 1 MG Examination: GENERAL:Normal, HEENT:Normal, NECK:Normal, LUNGS:Normal, CVS:Normal, ABDOMEN:Normal, MSK:Normal, SKIN:Normal, NEURO:Normal, :Normal laboratory and microbiology Laboratory Tests 04/03/25 04:28 Test 04/03/25 04:28 Range/Units Serum Glucose 172 H 74-106 mg/dL Microbiology Date/Time Source Procedure Growth Status 04/01/25 05:30 Nose MRSA Screen - Final Complete Problem List/Assessment/Plan Problem List/Assessment/Plan Chronic Kidney Disease stage 5 now end-stage renal disease requiring initiation of hemodialysis Chronic kidney disease Dr. Shea clinic Morbid obesity Diabetes mellitus type 2 Hypertension Peripheral arterial disease Below-knee amputation Chronic Congestive heart failure Gouty arthritis Anemia of chronic kidney disease Recommendations hd today s/p tunneled IJ hemodialysis catheter Epogen subQ 3 times weekly Resume home medications Fluid restrictions Renal diet laceworker for outpatient hemodialysis chair time at [facility] We will continue to follow-up Plan discussed with: Patient Dietary Evaluation Review Recommendations by RD: Dietary education by RD Comments: 1) Add 60g CCHO renal restriction to cardiac diet 2) Encourage optimal PO intake 3) Refer to outpatient RD for weight management 4) Follow-up with nephrology and cardiology 5) Continue to monitor I&O, labs, and skin integrity Expected Outcomes/Goals: 1) appetite and labs to improve 2) f/u in 3-5 days ENRIQUETA MICHELLE MD Apr 03, 2025 18:19
[2025-04-04] VITALS (8 sets, daily range): BP systolic 134–159; BP diastolic 87–100; PULSE 71–84; RESP 16–20; TEMP 97.3–99; O2SAT 97–99
[2025-04-04 07:11] LABS: Hematocrit 29.6 % (41.0-53.0); Hemoglobin 10.0 g/dL (13.5-17.5); Mean Corpuscular Hemoglobin 31.8 pg (28.0-32.0); Mean Corpuscular Volume 94.2 fL (80.0-100.0); Nucleated Red Blood Cells % 0.1 %
[2025-04-04 07:27] LABS: Alanine Aminotransferase 10 U/L (7-40); Albumin 3.5 g/dL (3.2-4.8); Alkaline Phosphatase 57 U/L (46-116); Anion Gap 10 (5-15); BUN/Creatinine Ratio 7.3 (10.0-20.0); Carbon Dioxide 25 mmol/L (20-31); Chloride 106 mmol/L (98-107); Potassium 3.8 mmol/L (3.5-5.1); Sodium 141 mmol/L (136-145); Total Protein 6.7 g/dL (5.7-8.2)
[2025-04-04 07:38] LABS: Blood Urea Nitrogen 33 mg/dL (9-23); Glucose 177 mg/dL (74-106)
[2025-04-04 07:39] LABS: Bilirubin, Total 0.2 mg/dL (0.2-1.0); Calcium 8.6 mg/dL (8.7-10.4)
--- NOTE | 2025-04-04 09:09 | DVHPN2 ---
Progress Note Date Seen: Apr 04, 2025 Medical Necessity Reason Pt with a Central, PICC or Fol: No Subjective Patient reports: Feels better Objective vital signs Vital Sign Date Time Temp Pulse Resp B/P (MAP) Pulse Ox O2 Delivery O2 Flow Rate FiO2 04/04/25 06:15 147/95 04/04/25 05:00 98.3 79 16 97 98.3 04/03/25 20:00 Room Air* 0 21 Total Intake and Output 04/03/25 04/03/25 04/04/25 15:00 23:00 07:00 Intake Total 760 ml 400 ml Output Total 600 ml 1000 ml Balance 160 ml -600 ml medications Current Medications Medications Dose Ordered Sig/Tam Route Start Time Stop Time Status Last Admin Dose Admin Sodium Chloride 10 ml Q8HR IV 03/31/25 22:00 04/04/25 06:17 10 ML Docusate Sodium 100 mg BIDPRN PRN PO 03/31/25 19:15 Acetaminophen 650 mg Q6HP PRN PO 03/31/25 19:15 Acetaminophen/ Hydrocodone Bitart 1 tab Q4HP PRN PO 03/31/25 19:15 04/02/25 17:34 1 TAB Ondansetron HCl 4 mg Q4HP PRN IV 03/31/25 19:15 Allopurinol 100 mg DAILY PO 04/01/25 10:00 04/03/25 10:48 100 MG Amitriptyline HCl 25 mg HS PO 03/31/25 22:00 04/03/25 21:36 25 MG Amlodipine Besylate 10 mg Q12HR PO 03/31/25 22:00 04/03/25 21:36 10 MG Furosemide 80 mg DAILY PO 04/01/25 10:00 04/01/25 12:46 80 MG Gabapentin 300 mg DAILY PO 04/01/25 10:00 04/03/25 10:48 300 MG Hydralazine HCl 50 mg Q8HR PO 03/31/25 22:00 04/04/25 06:15 50 MG Pantoprazole Sodium 40 mg DAILY@0700 PO 04/01/25 07:00 04/04/25 06:15 40 MG Tamsulosin HCl 0.4 mg QPM PO 04/01/25 18:00 04/02/25 18:21 0.4 MG Ferrous Sulfate 325 mg DAILY PO 04/01/25 10:00 04/03/25 10:48 325 MG Folic Acid 1 mg DAILY PO 04/01/25 10:00 04/03/25 10:48 1 MG laboratory and microbiology Laboratory Tests 04/04/25 05:51 Test 04/04/25 05:51 Range/Units Serum Glucose 177 H 74-106 mg/dL Microbiology Date/Time Source Procedure Growth Status 04/01/25 05:30 Nose MRSA Screen - Final Complete Problem List/Assessment/Plan Problem List/Assessment/Plan Chronic Kidney Disease stage 5 now end-stage renal disease requiring initiation of hemodialysis Chronic kidney disease 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
--- NOTE | 2025-04-04 13:22 | DVHPN2 ---
Reviewed: Care Plan, H&P, Labs, Medications, Previous Orders, Radiology Changes from previous H/P or p: No Changes Objective Vitals Vital Signs Date Time Temp Pulse Resp B/P (MAP) Pulse Ox O2 Delivery O2 Flow Rate FiO2 04/04/25 12:44 98.1 84 18 146/92 (110) 97 98.1 04/04/25 08:00 Room Air* 0 21 Intake/Output Intake and Output 04/04/25 07:00 Intake Total 1160 ml Output Total 1600 ml Balance -440 ml Intake Oral 1160 ml Output Urine Total 1600 ml Medications Current Medications Medications Dose Ordered Sig/Tam Route Start Time Stop Time Status Last Admin Dose Admin Sodium Chloride 10 ml Q8HR IV 03/31/25 22:00 04/04/25 06:17 10 ML Docusate Sodium 100 mg BIDPRN PRN PO 03/31/25 19:15 Acetaminophen 650 mg Q6HP PRN PO 03/31/25 19:15 Acetaminophen/ Hydrocodone Bitart 1 tab Q4HP PRN PO 03/31/25 19:15 04/02/25 17:34 1 TAB Ondansetron HCl 4 mg Q4HP PRN IV 03/31/25 19:15 Allopurinol 100 mg DAILY PO 04/01/25 10:00 04/04/25 09:43 100 MG Amitriptyline HCl 25 mg HS PO 03/31/25 22:00 04/03/25 21:36 25 MG Amlodipine Besylate 10 mg Q12HR PO 03/31/25 22:00 04/04/25 09:43 10 MG Furosemide 80 mg DAILY PO 04/01/25 10:00 04/04/25 09:42 80 MG Gabapentin 300 mg DAILY PO 04/01/25 10:00 04/04/25 09:43 300 MG Hydralazine HCl 50 mg Q8HR PO 03/31/25 22:00 04/04/25 06:15 50 MG Pantoprazole Sodium 40 mg DAILY@0700 PO 04/01/25 07:00 04/04/25 06:15 40 MG Tamsulosin HCl 0.4 mg QPM PO 04/01/25 18:00 04/02/25 18:21 0.4 MG Ferrous Sulfate 325 mg DAILY PO 04/01/25 10:00 04/04/25 09:43 325 MG Folic Acid 1 mg DAILY PO 04/01/25 10:00 04/04/25 09:42 1 MG Laboratory Results Laboratory Tests 04/04/25 05:51 Chemistry Test 04/04/25 05:51 Albumin 3.5 g/dL (3.2-4.8) Calcium Level 8.6 mg/dL (8.7-10.4) L Total Protein 6.7 g/dL (5.7-8.2) LFT Test 04/04/25 05:51 Alanine Aminotransferase (ALT) 10 U/L (7-40) Alkaline Phosphatase 57 U/L (46-116) Aspartate Amino Transferase (AST) 14 U/L (13-40) Total Bilirubin 0.2 mg/dL (0.2-1.0) Microbiology Microbiology Date/Time Source Procedure Growth Status 04/01/25 05:30 Nose MRSA Screen - Final Complete Labs and/or images reviewed: Labs reviewed by me, Image(s) reviewed by me Assessment/Plan Assessment/Plan ESRD requiring new onset hemo dialysis,consult by Dr. 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
[2025-04-05 01:00] VITALS: BP 146/97; PULSE 81; RESP 19; TEMP 98.3; O2SAT 96
[2025-04-05 05:00] VITALS: BP 142/86; PULSE 80; RESP 18; TEMP 98.7; O2SAT 98
[2025-04-05] MEDS ORDERED: SODIUM CHL 0.9% 1000 ML BAG XX ONE (07:00)
[2025-04-05 07:40] LABS: Hematocrit 28.7 % (41.0-53.0); Hemoglobin 9.8 g/dL (13.5-17.5); Mean Corpuscular Hemoglobin 32.1 pg (28.0-32.0); Mean Corpuscular Volume 94.0 fL (80.0-100.0); Nucleated Red Blood Cells % 0.0 %
[2025-04-05 08:54] LABS: Alanine Aminotransferase 10 U/L (7-40); Alkaline Phosphatase 55 U/L (46-116); Chloride 106 mmol/L (98-107); Potassium 4.1 mmol/L (3.5-5.1)
[2025-04-05 09:00] VITALS: BP 131/80; PULSE 79; RESP 18; TEMP 98.3; O2SAT 97
[2025-04-05 09:00] LABS: Carbon Dioxide 24 mmol/L (20-31)
[2025-04-05 09:05] LABS: BUN/Creatinine Ratio 9.8 (10.0-20.0)
[2025-04-05 09:06] LABS: Total Protein 6.2 g/dL (5.7-8.2)
[2025-04-05 09:07] LABS: Albumin 3.3 g/dL (3.2-4.8)
[2025-04-05 09:25] LABS: Anion Gap 12 (5-15); Bilirubin, Total 0.2 mg/dL (0.2-1.0); Blood Urea Nitrogen 48 mg/dL (9-23); Calcium 8.6 mg/dL (8.7-10.4); Glucose 232 mg/dL (74-106); Sodium 142 mmol/L (136-145)
--- NOTE | 2025-04-05 10:21 | DVHPN2 ---
Progress Note Date Seen: Apr 05, 2025 Medical Necessity Reason Pt with a Central, PICC or Fol: No Subjective Patient reports: Feels better Objective vital signs Vital Sign Date Time Temp Pulse Resp B/P (MAP) Pulse Ox O2 Delivery O2 Flow Rate FiO2 04/05/25 05:00 98.7 80 18 142/86 (104) 98 98.7 04/04/25 20:00 Room Air* 0 21 Total Intake and Output 04/04/25 04/04/25 04/05/25 15:00 23:00 07:00 Intake Total 600 ml 700 ml 480 ml Output Total 850 ml Balance 600 ml -150 ml 480 ml medications Current Medications Medications Dose Ordered Sig/Tam Route Start Time Stop Time Status Last Admin Dose Admin Sodium Chloride 10 ml Q8HR IV 03/31/25 22:00 04/05/25 06:00 10 ML Docusate Sodium 100 mg BIDPRN PRN PO 03/31/25 19:15 Acetaminophen 650 mg Q6HP PRN PO 03/31/25 19:15 Acetaminophen/ Hydrocodone Bitart 1 tab Q4HP PRN PO 03/31/25 19:15 04/04/25 21:31 1 TAB Ondansetron HCl 4 mg Q4HP PRN IV 03/31/25 19:15 Allopurinol 100 mg DAILY PO 04/01/25 10:00 04/04/25 09:43 100 MG Amitriptyline HCl 25 mg HS PO 03/31/25 22:00 04/04/25 23:09 25 MG Amlodipine Besylate 10 mg Q12HR PO 03/31/25 22:00 04/04/25 23:10 10 MG Furosemide 80 mg DAILY PO 04/01/25 10:00 04/04/25 09:42 80 MG Gabapentin 300 mg DAILY PO 04/01/25 10:00 04/04/25 09:43 300 MG Hydralazine HCl 50 mg Q8HR PO 03/31/25 22:00 04/04/25 23:09 50 MG Pantoprazole Sodium 40 mg DAILY@0700 PO 04/01/25 07:00 04/05/25 07:00 40 MG Tamsulosin HCl 0.4 mg QPM PO 04/01/25 18:00 04/04/25 17:43 0.4 MG Ferrous Sulfate 325 mg DAILY PO 04/01/25 10:00 04/04/25 09:43 325 MG Folic Acid 1 mg DAILY PO 04/01/25 10:00 04/04/25 09:42 1 MG Examination: GENERAL:Normal, CVS:Normal, MSK:Abnormal laboratory and microbiology Laboratory Tests 04/05/25 07:08 Test 04/05/25 07:08 Range/Units Serum Glucose 232 H 74-106 mg/dL Microbiology Date/Time Source Procedure Growth Status 04/01/25 05:30 Nose MRSA Screen - Final Complete Problem List/Assessment/Plan Problem List/Assessment/Plan Chronic Kidney Disease stage 5 now end-stage renal disease requiring initiation of hemodialysis Chronic kidney disease 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 refer to CM notes Can be DC today if deemed stable Plan discussed with: Patient My Orders My Orders Orders - NAS VILLARREAL MD Procedure Category Date Status Time Hemodialysis Orders ORDERS 04/05/25 Transmitted 07:00 Dialysis Nursing [facility] 04/05/25 In Process Message 07:00 Document Fluid Input [place] 04/05/25 In Process And Outpu 07:00 Dietary Evaluation Review Recommendations by RD: Dietary education by RD Comments: 1) Add 60g CCHO renal restriction to cardiac diet 2) Encourage optimal PO intake 3) Refer to outpatient RD for weight management 4) Follow-up with nephrology and cardiology 5) Continue to monitor I&O, labs, and skin integrity Expected Outcomes/Goals: 1) appetite and labs to improve 2) f/u in 3-5 days NAS VILLARREAL MD Apr 05, 2025 10:21
[2025-04-05] MEDS: LOSARTAN POTASSIUM 50 MG TAB PO SCH (10:42)
--- NOTE | 2025-04-05 12:43 | DVHPN2 ---
Reviewed: Care Plan, H&P, Labs, Medications, Previous Orders, Radiology Changes from previous H/P or p: No Changes Objective Vitals Vital Signs Date Time Temp Pulse Resp B/P (MAP) Pulse Ox O2 Delivery O2 Flow Rate FiO2 04/05/25 10:43 131/80 04/05/25 09:00 98.3 79 18 97 98.3 04/04/25 20:00 Room Air* 0 21 Intake/Output Intake and Output 04/05/25 07:00 Intake Total 1780 ml Output Total 850 ml Balance 930 ml Intake Oral 1780 ml Output Urine Total 850 ml Medications Current Medications Medications Dose Ordered Sig/Tam Route Start Time Stop Time Status Last Admin Dose Admin Sodium Chloride 10 ml Q8HR IV 03/31/25 22:00 04/05/25 06:00 10 ML Docusate Sodium 100 mg BIDPRN PRN PO 03/31/25 19:15 Acetaminophen 650 mg Q6HP PRN PO 03/31/25 19:15 Acetaminophen/ Hydrocodone Bitart 1 tab Q4HP PRN PO 03/31/25 19:15 04/04/25 21:31 1 TAB Ondansetron HCl 4 mg Q4HP PRN IV 03/31/25 19:15 Allopurinol 100 mg DAILY PO 04/01/25 10:00 04/05/25 10:43 100 MG Amitriptyline HCl 25 mg HS PO 03/31/25 22:00 04/04/25 23:09 25 MG Furosemide 80 mg DAILY PO 04/01/25 10:00 04/05/25 10:43 80 MG Gabapentin 300 mg DAILY PO 04/01/25 10:00 04/05/25 10:44 300 MG Hydralazine HCl 50 mg Q8HR PO 03/31/25 22:00 04/04/25 23:09 50 MG Pantoprazole Sodium 40 mg DAILY@0700 PO 04/01/25 07:00 04/05/25 07:00 40 MG Tamsulosin HCl 0.4 mg QPM PO 04/01/25 18:00 04/04/25 17:43 0.4 MG Ferrous Sulfate 325 mg DAILY PO 04/01/25 10:00 04/05/25 10:44 325 MG Folic Acid 1 mg DAILY PO 04/01/25 10:00 04/05/25 10:44 1 MG Amlodipine Besylate 10 mg DAILY PO 04/05/25 10:30 04/05/25 10:43 10 MG Losartan Potassium 50 mg DAILY PO 04/05/25 10:30 04/05/25 10:42 50 MG Laboratory Results Laboratory Tests 04/05/25 07:08 Chemistry Test 04/05/25 07:08 Albumin 3.3 g/dL (3.2-4.8) Calcium Level 8.6 mg/dL (8.7-10.4) L Total Protein 6.2 g/dL (5.7-8.2) LFT Test 04/05/25 07:08 Alanine Aminotransferase (ALT) 10 U/L (7-40) Alkaline Phosphatase 55 U/L (46-116) Aspartate Amino Transferase (AST) 14 U/L (13-40) Total Bilirubin 0.2 mg/dL (0.2-1.0) Microbiology Microbiology Date/Time Source Procedure Growth Status 04/01/25 05:30 Nose MRSA Screen - Final Complete Labs and/or images reviewed: Labs reviewed by me, Image(s) reviewed by me Assessment/Plan Assessment/Plan ESRD requiring new onset hemo dialysis,consult by Dr. Shea appreciated Status post insertion of hemodialysis cath by radiologist Depression Anxiety Diabetes Hypertension Time spent 55 minutes Outpatient chair time set up with [facility] dialysis Friday 6:00 p.m. Plan discussed with: Patient Date of Service: Apr 05, 2025 Billing Provider: MONISHA BLANDON MD Common Visit Codes: [id number] INP/OBS CARE(HIGH) MONISHA BLANDON MD Apr 05, 2025 12:43
--- NOTE | 2025-04-05 12:48 | DVHDS2 ---
Discharge Summary Date of Admission Mar 31, 2025 at 19:13 Date of Discharge: Apr 05, 2025 Admitting Diagnosis Shortness of breaths and generalized weakness Wounds: Hemodialysis Labs/Diagnostic Data: Laboratory Results Test 04/05/25 07:08 04/01/25 06:38 03/31/25 15:29 03/31/25 15:27 White Blood Count 7.9 10^3/uL (4.4-10.8) Red Blood Count 3.06 10^6/uL (4.5-5.90) Hemoglobin 9.8 g/dL (13.5-17.5) Hematocrit 28.7 % (41.0-53.0) Mean Corpuscular Volume 94.0 fL (80.0-100.0) Mean Corpuscular Hemoglobin 32.1 pg (28.0-32.0) Mean Corpuscular Hemoglobin Concent 34.1 g/dL (32.0-36.0) Red Cell Distribution Width 14.0 % (11.8-14.3) Platelet Count 218 10^3/uL (140-450) Mean Platelet Volume 7.3 fL (6.9-10.8) Neutrophils (%) (Auto) 68.5 % (37.0-80.0) Lymphocytes (%) (Auto) 21.3 % (10.0-50.0) Monocytes (%) (Auto) 6.5 % (0.0-12.0) Eosinophils (%) (Auto) 2.6 % (0.0-7.0) Basophils (%) (Auto) 1.1 % (0.0-2.0) Neutrophils # (Auto) 5.4 10 ^3/uL (1.6-8.6) Lymphocytes # (Auto) 1.7 10 ^3/uL (0.4-5.4) Monocytes # (Auto) 0.5 10 ^3/uL (0-1.3) Eosinophils # (Auto) 0.2 10 ^3/uL (0-0.8) Basophils # (Auto) 0.1 10 ^3/uL (0-0.2) Nucleated Red Blood Cells 0.0 % Sodium Level 142 mmol/L (136-145) Potassium Level 4.1 mmol/L (3.5-5.1) Chloride Level 106 mmol/L (98-107) Carbon Dioxide Level 24 mmol/L (20-31) Anion Gap 12 (5-15) Blood Urea Nitrogen 48 mg/dL (9-23) Creatinine 4.89 mg/dL (0.700-1.30) Glomerular Filtration Rate Calc 14 mL/min (>90) BUN/Creatinine Ratio 9.8 (10.0-20.0) Serum Glucose 232 mg/dL (74-106) Calcium Level 8.6 mg/dL (8.7-10.4) Total Bilirubin 0.2 mg/dL (0.2-1.0) Aspartate Amino Transferase (AST) 14 U/L (13-40) Alanine Aminotransferase (ALT) 10 U/L (7-40) Alkaline Phosphatase 55 U/L (46-116) Total Protein 6.2 g/dL (5.7-8.2) Albumin 3.3 g/dL (3.2-4.8) Hepatitis B Surface Antigen Negative (Negative) Hepatitis C Antibody Negative (Negative) Prothrombin Time 10.0 sec (9.3-11.8) Prothrombin Time INR 0.94 (0.9-1.15) Activated Partial Thromboplast Time 26.2 SEC (24.5-34.5) Uric Acid 6.9 mg/dL (3.7-9.2) Phosphorus Level 3.7 mg/dL (2.4-5.1) Magnesium Level 1.8 mg/dL (1.6-2.6) B-Type Natriuretic Peptide 49.10 pg/mL (0-100) Parathyroid Hormone (Intact) 257.5 pg/mL (18.4-80.1) Other Laboratory Tests 04/05/25 07:08 Brief Hx & Hospital Course: 49-year-old male with a history of anxiety depression diabetes hypertension came in for generalized weakness and shortness breath. History of ESRD on hemodialysis. Evaluated by the operations label clerk and started on hemodialysis after insertion of dialysis cath by the radiologist. The patient feels better being discharged home. Outpatient chair time set up with [facility] dialysis Consults/Reason for consult Nephrology Radiologist Operations or Procedures Dialysis cath placement Hemodialysis Condition at Discharge: Fair Final Diagnosis/Problems List ESRD requiring new onset hemo dialysis,consult by Dr. Shea appreciated Status post insertion of hemodialysis cath by radiologist Depression Anxiety Diabetes Hypertension Discharge Disposition: Home Discharge Instruct/Medications Diet: Renal Activity: No Restrictions, As Tolerated Follow Up/Referral: Follow up with the [facility] dialysis Friday 6:00 p.m. for dialysis Use Medications as prescribed Medications: Sent to the pharmacy Scheduled Allopurinol (Allopurinol), 100 MG PO DAILY, (Reported) Amitriptyline Hcl (Amitriptyline Hcl), 25 MG PO HS, (Reported) Amlodipine Besylate (Amlodipine Besylate), 10 MG PO Q12HR, (Reported) Calcitriol (Calcitriol), 0.5 MCG PO DAILY, (Reported) Carvedilol (Carvedilol), 6.25 MG PO Q12HR, (Reported) Ferrous Sulfate (Ferrous Sulfate), 325 MG PO DAILY, (Reported) Folic Acid (Folic Acid), 1 MG PO DAILY, (Reported) Furosemide (Lasix), 80 MG PO DAILY Gabapentin (Gabapentin), 300 MG PO DAILY, (Reported) Hydralazine Hcl (Hydralazine Hcl), 50 MG PO Q8HR Levofloxacin (Levaquin), 250 MG PO DAILY Pantoprazole Sodium Sesquihydr (Pantoprazole Sodium), 40 MG PO DAILY Tamsulosin Hcl (Tamsulosin Hcl), 0.4 MG PO QPM, (Reported) Zolpidem Tartrate (Zolpidem Tartrate), 1 TAB PO QPM, (Reported) Scheduled PRN Hydrocodone-Acetaminophen (Sterling 5/325MG), 1 TAB PO Q6HP PRN Miscellaneous Medications Dapagliflozin Propanediol (Farxiga), 10 MG PO, (Reported) Ergocalciferol (Vitamin D 62509 Unit), 50,000 UNIT PO, (Reported) Potassium Chloride (Klor-Con M10), 10 MEQ PO, (Reported) Semaglutide (Ozempic), 2 MG SC, (Reported) Senna (Senokot), 8.6 MG PO, (Reported) Sodium Bicarbonate (Sodium Bicarbonate), 650 MG PO, (Reported) 39 (Time Taken for discharge summary 39 minutes) Discharge Statement: "Patient was advised to return to the ER or call 911 if any headaches, dizziness, shortness of breath, chest pain, abdominal pain, bleeding, fevers, or worsening of medical condition. Patient was counseled about treatment plan, medications, possible side effects, patientverbalized understanding. All questions were answered to the best of my ability. This discharge took greater then 30 minutes in planning, reviewing documentation, counseling the patient, and discussing with other team members." ASSESSMENT ASSESSMENT Hospital Course Improved Assessment ESRD requiring new onset hemo dialysis,consult by Dr. Shea appreciated Status post insertion of hemodialysis cath by radiologist Depression Anxiety Diabetes Hypertension Date of Service: Apr 05, 2025 Billing Provider: MONISHA BLANDON MD Common Visit Codes: [id number] DISCH DAY >30min MONISHA BLANDON MD Apr 05, 2025 12:48
[2025-04-05 13:00] VITALS: BP 137/83; PULSE 79; RESP 18; TEMP 98.9; O2SAT 98
[2025-04-05 16:03] VITALS: BP 137/83; PULSE 79; RESP 18; TEMP 98.9; O2SAT 98
== END 2025-04-05 16:40 | disposition home or self-care (01) | DRG 194 ==
LOC: ER 14:39 → OVERFLOW 19:13 → WEST WING 22:05
PROVIDERS: ADMIT Family Medicine; ATTEND Family Medicine
PROC: 0JH63XZ Insertion of Tunneled Vascular Access Device into Chest Subcutaneous Tissue and Fascia, Percutaneous Approach (ICD-10-PCS; principal; 2025-04-01)
PROC: 02H633Z Insertion of Infusion Device into Right Atrium, Percutaneous Approach (ICD-10-PCS; 2025-04-01)
PROC: B548ZZA Ultrasonography of Superior Vena Cava, Guidance (ICD-10-PCS; 2025-04-01)
PROC: B5181ZA Fluoroscopy of Superior Vena Cava using Low Osmolar Contrast, Guidance (ICD-10-PCS; 2025-04-01)
PROC: 5A1D70Z Performance of Urinary Filtration, Intermittent, Less than 6 Hours Per Day (ICD-10-PCS; 2025-04-01)
PROC: 5A1D70Z Performance of Urinary Filtration, Intermittent, Less than 6 Hours Per Day (ICD-10-PCS; 2025-04-03)
DX: I13.2 Hypertensive heart and chronic kidney disease with heart failure and with stage 5 chronic kidney disease, or end stage renal disease (principal); N18.6 End stage renal disease; D63.1 Anemia in chronic kidney disease; Z89.611 Acquired absence of right leg above knee; Z68.43 Body mass index [BMI] 50.0-59.9, adult; I50.9 Heart failure, unspecified; E11.22 Type 2 diabetes mellitus with diabetic chronic kidney disease; E11.51 Type 2 diabetes mellitus with diabetic peripheral angiopathy without gangrene; E66.01 Morbid (severe) obesity due to excess calories; M10.9 Gout, unspecified; B19.20 Unspecified viral hepatitis C without hepatic coma; K21.9 Gastro-esophageal reflux disease without esophagitis; F41.9 Anxiety disorder, unspecified; F32.A Depression, unspecified; Z89.519 Acquired absence of unspecified leg below knee; Z99.2 Dependence on renal dialysis; Z79.899 Other long term (current) drug therapy; Z83.3 Family history of diabetes mellitus; Z82.49 Family history of ischemic heart disease and other diseases of the circulatory system; Z89.612 Acquired absence of left leg above knee
CPT/HCPCS: 36415; 36558; 71045; 77001; 80048; 80053; 83735; 83880; 83970; 84100; 84550; 85025; 85610; 85730; 86803; 87081; 87340; 90935; 99152; C1894; G0378; J1642; J2250; J2405